=== PATIENT | female | born 1940 | race Caucasian/White ===

== ENCOUNTER 2019-02-14 09:47 | Inpatient (IN) | payer MEDICARE, BC ==
[~2019-02-14] VITALS: Ht 152.4 cm; Wt 65.2 kg
[~2019-02-14 09:47] MED LIST: ASPI-611 PO; ASPI81TA44 PO; ATOR10TA PO; ATOR10TA70 PO; ATOR10TA87 PO; BIMA2.5D EACHEYE; BIMA2.5D OP; CALCIUM CITRATE PO; CALCIUM WITH D; CLOP75TA33 PO; CLOP75TA35 PO; CYCL-394 PO; DILT120C51 PO; DONE-46 PO; DULO-31 PO; DULO60CA45 PO; EXEN2VIA SUBCUT; FOLI1TAB16 PO; FOLIC ACID PO; GABA-532 PO; IRON PO; IRON18TA PO; LEVO125T PO; LEVO88TA2 PO; LOSA1TAB41 PO; MAG DELAY64 MG PO; MAGN400C PO; METF-437 PO; MULT-1074 PO; MULT-1085 PO; NITR100C6 PO; OMEP20TA23 PO; PANT-47 PO; PIOG15TA8 PO; PIOG1TAB29 PO; SUCR1TAB34 PO; TRAM50TA2 PO; VITAMIN D3 PO
[2019-02-14 10:36] LABS: BASOPHILS % (AUTO) 0.2 % (0-1); EOSINOPHILS % (AUTO) 0.2 % (0-6); HEMATOCRIT 37.5 % (35.0-45.0); HEMOGLOBIN 12.6 g/dl (12.0-16.0); LYMPHOCYTES # (AUTO) 0.5 X10'3 (1.1-4.8); LYMPHOCYTES % (AUTO) 5.8 % (21-51); MEAN CORPUSCULAR HEMOGLOBIN 32.3 PG (27.0-31.0); MEAN CORPUSCULAR HGB CONC 33.5 g/dL (33.0-36.5); MEAN CORPUSCULAR VOLUME 96.6 FL (78-98); MEAN PLATELET VOLUME 9.1 FL (7.4-10.4); MONOCYTES # (AUTO) 0.7 X10'3 (0-0.9); MONOCYTES % (AUTO) 7.8 % (2-12); NEUTROPHILS # (AUTO) 7.5 X10'3 (1.8-7.7); PLATELET COUNT 216 X10'3 (140-440); RED BLOOD COUNT 3.88 X10'6 (4.20-5.60); RED CELL DISTRIBUTION WIDTH 13.6 % (11.5-14.5); WHITE BLOOD COUNT 8.7 X10'3 (4.5-11.0)
[2019-02-14 10:51] LABS: ALANINE AMINOTRANSFERASE 27 U/L (12-78); ALBUMIN 2.1 G/DL (3.4-5.0); ALBUMIN/GLOBULIN RATIO 0.5 (1.1-1.5); ALKALINE PHOSPHATASE 102 IU/L (46-116); ANION GAP 11 (8-16); ASPARTATE AMINO TRANSFERASE 19 U/L (10-37); BILIRUBIN,TOTAL 0.3 MG/DL (0.1-1.0); BLOOD UREA NITROGEN 15 MG/DL (7-18); BUN/CREATININE RATIO 18.5 (6.6-38.0); CALCIUM 8.2 MG/DL (8.5-10.1); CHLORIDE 106 MMOL/L (99-107); CREATININE 0.81 MG/DL (0.40-0.90); GLUCOSE 101 MG/DL (70-104); POTASSIUM 3.9 MMOL/L (3.5-5.1); SODIUM 144 MMOL/L (135-145); TOTAL CARBON DIOXIDE 26.8 MMOL/L (24-32); TOTAL PROTEIN 6.2 G/DL (6.4-8.2); eGFR 69 ML/MIN
[2019-02-14 10:58] LABS: MAGNESIUM 1.5 MG/DL (1.5-2.4)
[2019-02-14] MEDS ORDERED: DILT120C52 PO (12:55)
[2019-02-14] MEDS ORDERED: FURO-150 PO (12:57)
[2019-02-14] MEDS ORDERED: ENOX40SY7 SUBCUT (12:58)
[2019-02-14] MEDS ORDERED: LEVO125T8 PO (13:01)
[2019-02-14] MEDS ORDERED: PRED10TA23 PO (13:01)
[2019-02-14] MEDS ORDERED: PANT-47 PO (13:01)
--- NOTE | 2019-02-14 13:01 | NUR ---
Patient repositioned and turned to right side at this time for patient comfort. No signs of distress noted, all safety measures in place, family at bedside.
[2019-02-14] MEDS ORDERED: LATA2.5D2 EACHEYE (13:02)
[2019-02-14] MEDS ORDERED: ACET-75 PO (13:15)
[2019-02-14] MEDS ORDERED: CYCL10TA26 PO (13:15)
[2019-02-14] MEDS ORDERED: LACT1CAP65 PO (13:15)
[2019-02-14] MEDS ORDERED: BISA10SU11 RC (13:15)
[2019-02-14] MEDS ORDERED: SUCR1TAB PO (13:15)
[2019-02-14] MEDS ORDERED: acetaminophen 325mg tablet PO PRN (13:15)
[2019-02-14] MEDS ORDERED: NYST1000 PO (13:15)
[2019-02-14] MEDS ORDERED: mag hydrox/Alum hydrox/simeth 30ml oral suspension PO PRN (13:15)
[2019-02-14] MEDS ORDERED: POTA-84 PO (13:15)
[2019-02-14] MEDS ORDERED: magnesium hydroxide 30ml (MOM) UD suspension PO PRN (13:15)
[2019-02-14] MEDS ORDERED: GABA-532 PO (13:15)
[2019-02-14] MEDS ORDERED: ONDA4TAB11 PO (13:15)
[2019-02-14] MEDS ORDERED: HYDR-4353 PO (13:15)
[2019-02-14] MEDS ORDERED: INSU100V11 SQ (13:15)
[2019-02-14] MEDS ORDERED: ALBU2.5V13 NEB (13:15)
[2019-02-14] MEDS ORDERED: SENN-162 PO (13:15)
[2019-02-14 14:30] VITALS: BP 181/72
[2019-02-14 15:00] VITALS: BP 163/76
[2019-02-14] MEDS ORDERED: non-formulary drug (Acetaminophen 1 TABLET) PO PRN (15:10)
[2019-02-14] MEDS ORDERED: bisacodyl 10mg suppository rectal RC PRN (15:10)
[2019-02-14] MEDS ORDERED: sennosides 8.6mg tablet PO PRN (15:10)
[2019-02-14] MEDS ORDERED: insulin Lispro (HumaLOG) vial - multi-dose SQ PRN (15:10)
[2019-02-14] MEDS ORDERED: cyclobenzaprine 10mg tablet PO PRN (15:10)
[2019-02-14] MEDS ORDERED: non-formulary drug (Ondansetron HCl 1 TAB) PO PRN (15:10)
[2019-02-14 16:37] LABS: HEMOGLOBIN A1C 7.7 % (4.5-6.2)
[2019-02-14 16:44] LABS: CLARITY,URINE SLIGHTLY CLOUDY (Clear); COLOR,URINE YELLOW (Yellow); GLUCOSE, URINE NEGATIVE (Neg); KETONES,URINE NEGATIVE (Neg); LEUKOCYTE ESTERASE ,URINE NEGATIVE (Neg); NITRITES, URINE NEGATIVE (Neg); OCCULT BLOOD,URINE SMALL (Neg); PROTEIN,URINE 100 mg/dl (Neg)
[2019-02-14 16:46] LABS: UA COLLECTION TYPE CLN CATCH MIDSTREAM
[2019-02-14 16:50] LABS: BACTERIA,URINE 2+ /HPF (Neg); MUCUS STRANDS MANY /LPF (Neg); SQUAMOUS EPITHELIAL CELL,UR MANY /LPF (FEW); WBC,URINE 0-4 /HPF (0-4)
[2019-02-14 16:51] LABS: AMORPHOUS URATES 1+; CAL OXALATE CRYSTALS 4+ /HPF (NEGATIVE)
[2019-02-14 16:52] LABS: YEAST MANY /HPF (NEGATIVE)
[2019-02-14] MEDS: sucralfate 1 gm tablet PO SCH ×2 (17:00→20:42)
[2019-02-14] MEDS: nystatin 500,000 unit/5ML UD oral suspension PO SCH ×2 (17:41→20:46)
[2019-02-14 18:00] VITALS: BP 177/82
--- NOTE | 2019-02-14 18:00 | NUR ---
Patient in room MED 312. I have received report from MERVIN LEIVA and had the opportunity to ask questions and assume patient care.
--- NOTE | 2019-02-14 18:12 | NUR ---
Problems reprioritized. Patient report given, questions answered & plan of care reviewed with CALI Cedeno.
[2019-02-14] MEDS: potassium Cl 20 mEq SR tablet PO SCH (20:00)
[2019-02-14] MEDS: heparin, porcine 5000 units/ml vial SQ SCH (20:42)
[2019-02-14] MEDS: furosemide 40mg/4ml inj IV SCH (20:42)
[2019-02-14] MEDS: lactobacillus rhamnosus 10,000 MMU CELLS/CAPSULE PO SCH (20:43)
[2019-02-14] MEDS: atorvastatin 10mg tablet PO SCH (20:43)
[2019-02-14] MEDS: gabapentin 300mg capsule PO SCH (20:43)
[2019-02-14] MEDS: latanoprost 0.005% 2.5ml ophthalmic drops EACHEYE SCH (20:46)
[2019-02-14] MEDS: HYDROcodone/acetaminophen 10/325mg tab PO PRN (20:46)
--- NOTE | 2019-02-14 21:29 | NUR ---
CALLED DR NEFF REGARDING PTS HISTORY OF DIABETES AND HER BS OF [phone], HE DEFERRED IT TO DAYTIME HOSPITALIST.
[2019-02-14 22:00] VITALS: BP 149/75
[2019-02-15] VITALS (8 sets, daily range): BP systolic 114–155; BP diastolic 65–90
[2019-02-15] MEDS ORDERED: magnesium 4gm in 100ml NS 100 ML IV PRN (04:30)
[2019-02-15] MEDS ORDERED: magnesium Cl slow-release 64mg tablet PO PRN (04:30)
[2019-02-15] MEDS ORDERED: potassium CL 10mEq/100ml bag 100 ML IV PRN (04:30)
[2019-02-15] MEDS ORDERED: potassium Cl 20 mEq SR tablet PO PRN ×2 (04:30)
--- NOTE | 2019-02-15 04:33 | NUR ---
CALLED DR NEFF TO REPORT 10 BEAT RUN OF V-TACH. TAWANDA ORDERED PROTOCOL MAG REPLACEMENT.
[2019-02-15 05:24] LABS: BASOPHILS % (AUTO) 0.2 % (0-1); EOSINOPHILS # (AUTO) 0.1 X10'3 (0-0.9); HEMATOCRIT 37.9 % (35.0-45.0); HEMOGLOBIN 12.6 g/dl (12.0-16.0); LYMPHOCYTES # (AUTO) 0.4 X10'3 (1.1-4.8); LYMPHOCYTES % (AUTO) 5.9 % (21-51); MEAN CORPUSCULAR HGB CONC 33.4 g/dL (33.0-36.5); MEAN CORPUSCULAR VOLUME 95.9 FL (78-98); MEAN PLATELET VOLUME 9.3 FL (7.4-10.4); MONOCYTES # (AUTO) 0.6 X10'3 (0-0.9); MONOCYTES % (AUTO) 8.6 % (2-12); NEUTROPHILS # (AUTO) 6.3 X10'3 (1.8-7.7); NEUTROPHILS % (AUTO) 84.3 % (42-75); PLATELET COUNT 217 X10'3 (140-440); RED BLOOD COUNT 3.95 X10'6 (4.20-5.60); RED CELL DISTRIBUTION WIDTH 13.8 % (11.5-14.5); WHITE BLOOD COUNT 7.4 X10'3 (4.5-11.0)
[2019-02-15 05:37] LABS: ALBUMIN 2.1 G/DL (3.4-5.0); ANION GAP 7 (8-16); BLOOD UREA NITROGEN 13 MG/DL (7-18); BUN/CREATININE RATIO 15.9 (6.6-38.0); CALCIUM 7.8 MG/DL (8.5-10.1); CHLORIDE 101 MMOL/L (99-107); CREATININE 0.82 MG/DL (0.40-0.90); GLUCOSE 163 MG/DL (70-104); MAGNESIUM 1.3 MG/DL (1.5-2.4); POTASSIUM 3.3 MMOL/L (3.5-5.1); SODIUM 140 MMOL/L (135-145); TOTAL CARBON DIOXIDE 31.6 MMOL/L (24-32); eGFR 68 ML/MIN
--- NOTE | 2019-02-15 06:00 | NUR ---
Problems reprioritized. Patient report given, questions answered & plan of care reviewed with Angela LEIVA.
[2019-02-15] MEDS: sucralfate 1 gm tablet PO SCH (07:00)
--- NOTE | 2019-02-15 07:04 | NUR ---
Patient in room MED 312. I have received report from Pao LEIVA and had the opportunity to ask questions and assume patient care.
[2019-02-15] MEDS ORDERED: pantoprazole 40mg Tablet.DR PO SCH (08:00)
[2019-02-15] MEDS ORDERED: levoTHYROXINE 125mcg tablet PO SCH (08:00)
[2019-02-15] MEDS: nystatin 500,000 unit/5ML UD oral suspension PO SCH ×4 (08:00→21:15)
[2019-02-15] MEDS: gabapentin 300mg capsule PO SCH ×3 (08:10→21:00)
[2019-02-15] MEDS: duloxetine 30mg CAPSULE.DR PO SCH (08:10)
[2019-02-15] MEDS: potassium Cl 20 mEq SR tablet PO SCH ×2 (08:11→21:19)
[2019-02-15] MEDS: prednisone 10mg tablet PO SCH (08:12)
[2019-02-15] MEDS: diltiazem CD 120mg capsule (once-daily) PO SCH (08:13)
[2019-02-15] MEDS: lactobacillus rhamnosus 10,000 MMU CELLS/CAPSULE PO SCH ×2 (08:13→20:00)
[2019-02-15] MEDS: furosemide 40mg/4ml inj IV SCH ×2 (08:14→21:02)
[2019-02-15] MEDS: heparin, porcine 5000 units/ml vial SQ SCH ×2 (08:18→21:08)
[2019-02-15] MEDS ORDERED: acetaminophen 325mg/10.15ml oral unit dose solution PO PRN (09:14)
[2019-02-15] MEDS: sucralfate 1gm/10ml UD suspension PO SCH ×2 (12:00→21:14)
--- NOTE | 2019-02-15 13:13 | NUR ---
PAGER ID: [phone] MESSAGE: 312: SUMAN - HR SINUS TACH 160 -180S. ORDERS? TY NURSE KENDY
--- NOTE | 2019-02-15 13:19 | NUR ---
INFORMED ESCOBAR OF HR ST 160-180S. NEW ORDER: CALL IR STAT FOR THORACENTESIS AND GIVE X1 500mL NS BOLUS. WILL CONTINUE TO MONITOR.
--- NOTE | 2019-02-15 14:06 | NUR ---
PAGER ID: [phone] MESSAGE: 312: SUMAN FRANCO 700mL off left lung. HR much better post bolus and thora 100s :D Nurse Chelsea ext [phone]
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
--- NOTE | 2019-02-15 18:00 | NUR ---
Patient in room MED 312. I have received report from Angela LEIVA and had the opportunity to ask questions and assume patient care.
[2019-02-15] MEDS: ondansetron/PF 4mg/2ml inj IV PRN (20:18)
[2019-02-15] MEDS: atorvastatin 10mg tablet PO SCH (21:00)
[2019-02-15] MEDS: latanoprost 0.005% 2.5ml ophthalmic drops EACHEYE SCH (21:22)
[2019-02-16 02:00] VITALS: BP 144/66
[2019-02-16 05:31] LABS: BASOPHILS % (AUTO) 0.3 % (0-1); EOSINOPHILS % (AUTO) 0.5 % (0-6); HEMATOCRIT 38.4 % (35.0-45.0); LYMPHOCYTES # (AUTO) 0.4 X10'3 (1.1-4.8); LYMPHOCYTES % (AUTO) 5.7 % (21-51); MEAN CORPUSCULAR HEMOGLOBIN 32.7 PG (27.0-31.0); MEAN CORPUSCULAR HGB CONC 33.9 g/dL (33.0-36.5); MEAN CORPUSCULAR VOLUME 96.4 FL (78-98); MEAN PLATELET VOLUME 9.8 FL (7.4-10.4); MONOCYTES # (AUTO) 0.6 X10'3 (0-0.9); MONOCYTES % (AUTO) 9.8 % (2-12); NEUTROPHILS # (AUTO) 5.2 X10'3 (1.8-7.7); NEUTROPHILS % (AUTO) 83.7 % (42-75); PLATELET COUNT 227 X10'3 (140-440); RED BLOOD COUNT 3.99 X10'6 (4.20-5.60); RED CELL DISTRIBUTION WIDTH 13.7 % (11.5-14.5); WHITE BLOOD COUNT 6.2 X10'3 (4.5-11.0)
[2019-02-16 05:53] LABS: ALBUMIN 2.1 G/DL (3.4-5.0); ANION GAP 6 (8-16); BLOOD UREA NITROGEN 19 MG/DL (7-18); BUN/CREATININE RATIO 23.8 (6.6-38.0); CALCIUM 7.7 MG/DL (8.5-10.1); CHLORIDE 102 MMOL/L (99-107); GLUCOSE 174 MG/DL (70-104); MAGNESIUM 1.3 MG/DL (1.5-2.4); POTASSIUM 3.9 MMOL/L (3.5-5.1); SODIUM 140 MMOL/L (135-145); TOTAL CARBON DIOXIDE 31.9 MMOL/L (24-32); eGFR 70 ML/MIN
--- NOTE | 2019-02-16 06:00 | NUR ---
Problems reprioritized. Patient report given, questions answered & plan of care reviewed with KENDY LEIVA.
[2019-02-16 07:00] VITALS: BP 147/72
[2019-02-16] MEDS: sucralfate 1gm/10ml UD suspension PO SCH ×5 (07:00→22:53)
--- NOTE | 2019-02-16 07:11 | NUR ---
Patient in room MED 312. I have received report from Pao LEIVA and had the opportunity to ask questions and assume patient care.
[2019-02-16] MEDS: pantoprazole 40 MG vial IV SCH (07:50)
[2019-02-16] MEDS: heparin, porcine 5000 units/ml vial SQ SCH ×2 (07:51→22:52)
[2019-02-16] MEDS: furosemide 40mg/4ml inj IV SCH ×2 (07:51→22:44)
[2019-02-16] MEDS: potassium Cl 20 mEq SR tablet PO SCH ×2 (08:00→23:12)
[2019-02-16] MEDS: prednisone 10mg tablet PO SCH (08:00)
[2019-02-16] MEDS: gabapentin 300mg capsule PO SCH ×3 (08:02→21:00)
[2019-02-16] MEDS: diltiazem CD 120mg capsule (once-daily) PO SCH (08:02)
[2019-02-16] MEDS: duloxetine 30mg CAPSULE.DR PO SCH (08:02)
[2019-02-16] MEDS: lactobacillus rhamnosus 10,000 MMU CELLS/CAPSULE PO SCH ×2 (08:05→20:00)
[2019-02-16] MEDS: nystatin 500,000 unit/5ML UD oral suspension PO SCH ×4 (08:24→22:55)
[2019-02-16] MEDS: levoTHYROXINE sod inj. 100mcg/5 ml vial IV SCH (08:47)
--- NOTE | 2019-02-16 09:30 | NUR ---
Patient continues to refuse her K Dur which she spit out today. The pt states it "rodriguez". made aware when he rounded this morning.
[2019-02-16 11:00] VITALS: BP 159/72
[2019-02-16 15:00] VITALS: BP 116/53
[2019-02-16 18:00] VITALS: BP 113/39
--- NOTE | 2019-02-16 18:00 | NUR ---
Problems reprioritized. Patient report given, questions answered & plan of care reviewed with Pao LEIVA.
--- NOTE | 2019-02-16 18:00 | NUR ---
Patient in room MED 312. I have received report from KENDY LEIVA and had the opportunity to ask questions and assume patient care.
[2019-02-16] MEDS ORDERED: glucagon, human recombinant 1mg kit SUBCUT PRN (19:40)
[2019-02-16] MEDS ORDERED: dextrose 50%-water 50ml dispensing syringe IV PRN ×2 (19:40)
[2019-02-16] MEDS ORDERED: MESSAGE TO PHARMACY PO ONE (19:40)
[2019-02-16] MEDS ORDERED: dextrose ORAL solution 15 GM/59 ML bottle PO PRN ×2 (19:40)
--- NOTE | 2019-02-16 19:47 | NUR ---
Called Bernt and notified him pt does not take sliding scale insulin at home and requested if we could put her on the hyper/hypoglycemic protocol and he agreed.
[2019-02-16] MEDS: insulin Lispro (HumaLOG) vial - multi-dose SQ SCH (19:51)
[2019-02-16] MEDS: insulin glargine (Lantus) pen - multi-dose SQ SCH (21:00)
[2019-02-16] MEDS: atorvastatin 10mg tablet PO SCH (21:00)
[2019-02-16 22:00] VITALS: BP 125/53
[2019-02-16] MEDS: latanoprost 0.005% 2.5ml ophthalmic drops EACHEYE SCH (22:56)
--- NOTE | 2019-02-16 23:30 | NUR ---
CALLED TAWANDA ABOUT PT ASPIRATING ON PILL AND HE ORDERED CHEST XRAY, RT TREATEMENT AND EVAL, ABG, NPO NOW, AND SPEECH AND SWALLOW EVAL TO BE DONE.
[2019-02-17] VITALS (7 sets, daily range): BP systolic 124–160; BP diastolic 61–68
[2019-02-17 00:06] LABS: ABG BASE EXCESS 7.6 mmol/L (-2.0-3.0); ABG OXYGEN SATURATION 86.8 % (95-98); ABG PCO2 (T) 47.7 mmHg (35.0-45.0); ABG PH (T) 7.455 (7.350-7.450); ABG PO2 (T) 48.7 mmHg (83-108); ALLEN'S TEST Positive; FCOHb 0.2 % (0.5-1.5); FLOW 6 L/min; FMetHb 0.3 % (0.3-1.12); FO2Hb 86.4 % (94-100); PATIENT TEMPERATURE 36.3; TOTAL HEMOGLOBIN 14.3 G/dl (12.0-16.0)
[2019-02-17] MEDS: ipratropium/albuterol 3ml nebule NEB PRN (00:54)
[2019-02-17 05:45] LABS: BASOPHILS % (AUTO) 0.2 % (0-1); EOSINOPHILS % (AUTO) 0.1 % (0-6); HEMATOCRIT 38.3 % (35.0-45.0); LYMPHOCYTES # (AUTO) 0.3 X10'3 (1.1-4.8); LYMPHOCYTES % (AUTO) 4.8 % (21-51); MEAN CORPUSCULAR HEMOGLOBIN 32.9 PG (27.0-31.0); MEAN CORPUSCULAR VOLUME 96.7 FL (78-98); MEAN PLATELET VOLUME 9.4 FL (7.4-10.4); MONOCYTES # (AUTO) 0.6 X10'3 (0-0.9); MONOCYTES % (AUTO) 8.5 % (2-12); NEUTROPHILS % (AUTO) 86.4 % (42-75); PLATELET COUNT 239 X10'3 (140-440); RED BLOOD COUNT 3.96 X10'6 (4.20-5.60); RED CELL DISTRIBUTION WIDTH 13.4 % (11.5-14.5); WHITE BLOOD COUNT 6.9 X10'3 (4.5-11.0)
[2019-02-17 06:22] LABS: ANION GAP 7 (8-16); BLOOD UREA NITROGEN 22 MG/DL (7-18); BUN/CREATININE RATIO 25.6 (6.6-38.0); CALCIUM 7.9 MG/DL (8.5-10.1); CHLORIDE 101 MMOL/L (99-107); CREATININE 0.86 MG/DL (0.40-0.90); GLUCOSE 194 MG/DL (70-104); POTASSIUM 4.1 MMOL/L (3.5-5.1); SODIUM 138 MMOL/L (135-145); TOTAL CARBON DIOXIDE 30.1 MMOL/L (24-32); eGFR 64 ML/MIN
[2019-02-17 06:23] LABS: ALBUMIN 2.2 G/DL (3.4-5.0); MAGNESIUM 1.3 MG/DL (1.5-2.4)
[2019-02-17] MEDS: sucralfate 1gm/10ml UD suspension PO SCH ×4 (07:00→21:00)
--- NOTE | 2019-02-17 07:01 | NUR ---
Patient in room MED 312. I have received report from CALI slater and had the opportunity to ask questions and assume patient care.
[2019-02-17] MEDS: potassium Cl 20 mEq SR tablet PO SCH ×2 (08:00→20:00)
[2019-02-17] MEDS: lactobacillus rhamnosus 10,000 MMU CELLS/CAPSULE PO SCH ×2 (08:00→20:00)
[2019-02-17] MEDS: gabapentin 300mg capsule PO SCH ×3 (08:00→21:00)
[2019-02-17] MEDS: nystatin 500,000 unit/5ML UD oral suspension PO SCH ×4 (08:00→21:00)
[2019-02-17] MEDS: prednisone 10mg tablet PO SCH (08:00)
[2019-02-17] MEDS: diltiazem CD 120mg capsule (once-daily) PO SCH (08:00)
[2019-02-17] MEDS: duloxetine 30mg CAPSULE.DR PO SCH (08:00)
[2019-02-17] MEDS: furosemide 40mg/4ml inj IV SCH ×2 (08:28→20:03)
[2019-02-17] MEDS: pantoprazole 40 MG vial IV SCH (08:28)
[2019-02-17] MEDS: levoTHYROXINE sod inj. 100mcg/5 ml vial IV SCH (08:28)
[2019-02-17] MEDS: heparin, porcine 5000 units/ml vial SQ SCH ×2 (08:29→20:03)
--- NOTE | 2019-02-17 18:15 | NUR ---
Patient in room MED 312. I have received report from CALI Martinez and had the opportunity to ask questions and assume patient care.
--- NOTE | 2019-02-17 18:36 | NUR ---
Patient in room MED 312. I have received report from CALI Wade and had the opportunity to ask questions and assume patient care.
[2019-02-17] MEDS: normal saline 1000ml 1,000 ML IV SCH (20:03)
[2019-02-17] MEDS: atorvastatin 10mg tablet PO SCH (21:00)
[2019-02-17] MEDS: insulin glargine (Lantus) pen - multi-dose SQ SCH (21:00)
[2019-02-17] MEDS: latanoprost 0.005% 2.5ml ophthalmic drops EACHEYE SCH (21:30)
[2019-02-18 02:00] VITALS: BP 163/74
[2019-02-18 03:28] LABS: ALBUMIN 2.1 G/DL (3.4-5.0); ANION GAP 7 (8-16); BASOPHILS % (AUTO) 0.3 % (0-1); BLOOD UREA NITROGEN 22 MG/DL (7-18); BUN/CREATININE RATIO 27.5 (6.6-38.0); CALCIUM 7.9 MG/DL (8.5-10.1); CHLORIDE 99 MMOL/L (99-107); EOSINOPHILS % (AUTO) 0.1 % (0-6); GLUCOSE 177 MG/DL (70-104); HEMATOCRIT 40.5 % (35.0-45.0); HEMOGLOBIN 13.8 g/dl (12.0-16.0); LYMPHOCYTES # (AUTO) 0.3 X10'3 (1.1-4.8); LYMPHOCYTES % (AUTO) 4.3 % (21-51); MAGNESIUM 2.7 MG/DL (1.5-2.4); MEAN CORPUSCULAR HEMOGLOBIN 32.4 PG (27.0-31.0); MEAN CORPUSCULAR VOLUME 95.1 FL (78-98); MEAN PLATELET VOLUME 9.1 FL (7.4-10.4); MONOCYTES # (AUTO) 0.6 X10'3 (0-0.9); MONOCYTES % (AUTO) 7.9 % (2-12); NEUTROPHILS # (AUTO) 6.5 X10'3 (1.8-7.7); NEUTROPHILS % (AUTO) 87.4 % (42-75); PLATELET COUNT 281 X10'3 (140-440); RED BLOOD COUNT 4.26 X10'6 (4.20-5.60); RED CELL DISTRIBUTION WIDTH 13.6 % (11.5-14.5); SODIUM 140 MMOL/L (135-145); TOTAL CARBON DIOXIDE 34.3 MMOL/L (24-32); WHITE BLOOD COUNT 7.4 X10'3 (4.5-11.0); eGFR 70 ML/MIN
--- NOTE | 2019-02-18 03:40 | NUR ---
* NOTIFIED* PAGER ID: [phone] MESSAGE: ACCE 312 Amina Chaudhary, critical K+ 3.0. Will start replacement per protocol. Sheri Hernandez RN ext [phone]
[2019-02-18] MEDS ORDERED: potassium Cl 20 mEq SR tablet PO PRN ×2 (05:35)
[2019-02-18] MEDS ORDERED: magnesium 4gm in 100ml NS 100 ML IV PRN (05:35)
[2019-02-18] MEDS ORDERED: magnesium 2GM in 50ml NS 50 ML IV PRN (05:35)
[2019-02-18] MEDS: potassium CL 10mEq/100ml bag 100 ML IV PRN ×4 (05:54→20:55)
[2019-02-18 06:00] VITALS: BP 169/83
--- NOTE | 2019-02-18 06:24 | NUR ---
Problems reprioritized. Patient report given, questions answered & plan of care reviewed with ACLI Martinez.
--- NOTE | 2019-02-18 06:34 | NUR ---
Patient in room MED 312. I have received report from CALI Waed and had the opportunity to ask questions and assume patient care.
[2019-02-18] MEDS: nystatin 500,000 unit/5ML UD oral suspension PO SCH ×4 (08:00→20:40)
[2019-02-18] MEDS: duloxetine 30mg CAPSULE.DR PO SCH (08:00)
[2019-02-18] MEDS: lactobacillus rhamnosus 10,000 MMU CELLS/CAPSULE PO SCH ×2 (08:00→20:36)
[2019-02-18] MEDS: potassium Cl 20 mEq SR tablet PO SCH ×2 (08:00→20:00)
[2019-02-18] MEDS: furosemide 40mg/4ml inj IV SCH ×2 (08:00→13:25)
[2019-02-18] MEDS: levoTHYROXINE sod inj. 100mcg/5 ml vial IV SCH (08:00)
[2019-02-18] MEDS: gabapentin 300mg capsule PO SCH ×3 (08:00→20:38)
[2019-02-18] MEDS: ondansetron/PF 4mg/2ml inj IV PRN (08:08)
[2019-02-18] MEDS: pantoprazole 40 MG vial IV SCH (08:08)
[2019-02-18] MEDS: sucralfate 1gm/10ml UD suspension PO SCH ×4 (09:34→20:40)
[2019-02-18] MEDS: diltiazem CD 120mg capsule (once-daily) PO SCH (11:24)
[2019-02-18] MEDS: heparin, porcine 5000 units/ml vial SQ SCH ×2 (11:25→20:44)
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
[2019-02-18] MEDS: prednisone 10mg tablet PO SCH (13:25)
[2019-02-18] MEDS: HYDROcodone/acetaminophen 10/325mg tab PO PRN (14:11)
[2019-02-18] MEDS ORDERED: morphine 2 MG/ML inj. syringe IV PRN ×2 (15:25→15:30)
[2019-02-18] MEDS ORDERED: POTASSIUM CL IV ONE ×4 (15:55→16:03)
[2019-02-18] MEDS ORDERED: LIDOCAINE 1% IV ONE ×4 (15:55→16:03)
[2019-02-18] MEDS ORDERED: [UNRECOGNIZED DRUG - OTHER] IV ONE (15:59)
[2019-02-18] MEDS ORDERED: [UNRECOGNIZED DRUG - OTHER] IV ONE (16:03)
--- NOTE | 2019-02-18 17:59 | NUR ---
attempted IV restart x3,unsuccessful,picc line RN in iv started by BlanquitaRN x1 attempt to PATRICIA
[2019-02-18 18:00] VITALS: BP 109/87
--- NOTE | 2019-02-18 18:25 | NUR ---
Patient in room MED 312. I have received report from CALI Martinez and had the opportunity to ask questions and assume patient care.
--- NOTE | 2019-02-18 18:41 | NUR ---
Problems reprioritized. Patient report given, questions answered & plan of care reviewed with CALI Wade.
[2019-02-18] MEDS: atorvastatin 10mg tablet PO SCH (20:38)
[2019-02-18] MEDS: latanoprost 0.005% 2.5ml ophthalmic drops EACHEYE SCH (20:43)
[2019-02-18] MEDS: normal saline 1000ml 1,000 ML IV SCH ×2 (20:45→21:40)
[2019-02-18] MEDS: insulin Lispro (HumaLOG) vial - multi-dose SQ SCH (21:22)
[2019-02-18] MEDS: insulin glargine (Lantus) pen - multi-dose SQ SCH (21:24)
[2019-02-18 22:00] VITALS: BP 150/60
[2019-02-19] VITALS (7 sets, daily range): BP systolic 119–165; BP diastolic 56–84
[2019-02-19] MEDS: potassium CL 10mEq/100ml bag 100 ML IV PRN ×2 (01:55→04:52)
[2019-02-19 05:54] LABS: BASOPHILS % (AUTO) 0.1 % (0-1); EOSINOPHILS % (AUTO) 0 % (0-6); HEMATOCRIT 38.6 % (35.0-45.0); HEMOGLOBIN 13.2 g/dl (12.0-16.0); LYMPHOCYTES # (AUTO) 0.4 X10'3 (1.1-4.8); MEAN CORPUSCULAR HEMOGLOBIN 32.6 PG (27.0-31.0); MEAN CORPUSCULAR HGB CONC 34.2 g/dL (33.0-36.5); MEAN CORPUSCULAR VOLUME 95.4 FL (78-98); MEAN PLATELET VOLUME 9.1 FL (7.4-10.4); MONOCYTES # (AUTO) 0.6 X10'3 (0-0.9); MONOCYTES % (AUTO) 7.1 % (2-12); NEUTROPHILS % (AUTO) 88.8 % (42-75); PLATELET COUNT 290 X10'3 (140-440); RED BLOOD COUNT 4.05 X10'6 (4.20-5.60); RED CELL DISTRIBUTION WIDTH 13.1 % (11.5-14.5)
[2019-02-19 05:57] LABS: ALBUMIN 2.1 G/DL (3.4-5.0); ANION GAP 6 (8-16); BLOOD UREA NITROGEN 28 MG/DL (7-18); BUN/CREATININE RATIO 37.8 (6.6-38.0); CALCIUM 8.2 MG/DL (8.5-10.1); CHLORIDE 101 MMOL/L (99-107); CREATININE 0.74 MG/DL (0.40-0.90); GLUCOSE 182 MG/DL (70-104); MAGNESIUM 1.9 MG/DL (1.5-2.4); POTASSIUM 4.2 MMOL/L (3.5-5.1); SODIUM 139 MMOL/L (135-145); TOTAL CARBON DIOXIDE 32.5 MMOL/L (24-32); eGFR 76 ML/MIN
--- NOTE | 2019-02-19 06:37 | NUR ---
Problems reprioritized. Patient report given, questions answered & plan of care reviewed with CALI Rothman.
[2019-02-19 06:51] LABS: TOTAL CELLS COUNTED 100
[2019-02-19 06:52] LABS: PLATELET ESTIMATE NORMAL
[2019-02-19] MEDS: levoTHYROXINE sod inj. 100mcg/5 ml vial IV SCH (08:00)
[2019-02-19] MEDS: potassium Cl 20 mEq SR tablet PO SCH ×2 (08:00→21:52)
[2019-02-19] MEDS: gabapentin 300mg capsule PO SCH ×3 (08:05→21:48)
[2019-02-19] MEDS: sucralfate 1gm/10ml UD suspension PO SCH ×4 (08:05→21:46)
[2019-02-19] MEDS: nystatin 500,000 unit/5ML UD oral suspension PO SCH ×4 (08:05→21:46)
[2019-02-19] MEDS: prednisone 10mg tablet PO SCH (08:06)
[2019-02-19] MEDS: lactobacillus rhamnosus 10,000 MMU CELLS/CAPSULE PO SCH ×2 (08:06→21:55)
[2019-02-19] MEDS: duloxetine 30mg CAPSULE.DR PO SCH (08:06)
[2019-02-19] MEDS: diltiazem CD 120mg capsule (once-daily) PO SCH (08:06)
[2019-02-19] MEDS: heparin, porcine 5000 units/ml vial SQ SCH ×2 (08:07→21:44)
[2019-02-19] MEDS: furosemide 40mg/4ml inj IV SCH ×2 (08:07→21:33)
[2019-02-19] MEDS: pantoprazole 40 MG vial IV SCH (08:08)
[2019-02-19] MEDS: insulin Lispro (HumaLOG) vial - multi-dose SQ SCH ×4 (08:17→21:19)
[2019-02-19] MEDS: normal saline 1000ml 1,000 ML IV SCH (10:05)
--- NOTE | 2019-02-19 18:00 | NUR ---
Patient in room MED 312. I have received report from Lorna LEIAV and had the opportunity to ask questions and assume patient care.
[2019-02-19] MEDS: ipratropium/albuterol 3ml nebule NEB PRN (20:43)
--- NOTE | 2019-02-19 21:12 | NUR ---
RT eval and tx order cancelled, prn tx's still active as this is what the pt takes at home.
[2019-02-19] MEDS: insulin glargine (Lantus) pen - multi-dose SQ SCH (21:32)
[2019-02-19] MEDS: latanoprost 0.005% 2.5ml ophthalmic drops EACHEYE SCH (21:48)
[2019-02-19] MEDS: atorvastatin 10mg tablet PO SCH (21:50)
[2019-02-20 02:00] VITALS: BP 158/70
[2019-02-20 06:00] VITALS: BP 159/64
--- NOTE | 2019-02-20 06:00 | NUR ---
Problems reprioritized. Patient report given, questions answered & plan of care reviewed with Cleo LEIVA.
--- NOTE | 2019-02-20 06:00 | NUR ---
Patient in room MED 312. I have received report from CALI Cedeno and had the opportunity to ask questions and assume patient care.
[2019-02-20] MEDS: sucralfate 1gm/10ml UD suspension PO SCH ×4 (07:06→21:59)
[2019-02-20] MEDS: insulin Lispro (HumaLOG) vial - multi-dose SQ SCH ×3 (08:30→18:37)
[2019-02-20] MEDS: pantoprazole 40 MG vial IV SCH (08:40)
[2019-02-20] MEDS: furosemide 40mg/4ml inj IV SCH (08:40)
[2019-02-20] MEDS: heparin, porcine 5000 units/ml vial SQ SCH ×2 (08:41→22:05)
[2019-02-20] MEDS: lactobacillus rhamnosus 10,000 MMU CELLS/CAPSULE PO SCH ×2 (08:41→22:03)
[2019-02-20] MEDS: potassium Cl 20 mEq SR tablet PO SCH ×2 (08:41→22:03)
[2019-02-20] MEDS: nystatin 500,000 unit/5ML UD oral suspension PO SCH ×4 (08:41→21:59)
[2019-02-20] MEDS: duloxetine 30mg CAPSULE.DR PO SCH (08:42)
[2019-02-20] MEDS: diltiazem CD 120mg capsule (once-daily) PO SCH (08:42)
[2019-02-20] MEDS: prednisone 10mg tablet PO SCH (08:42)
[2019-02-20] MEDS: gabapentin 300mg capsule PO SCH ×3 (08:42→21:59)
[2019-02-20] MEDS: levoTHYROXINE sod inj. 100mcg/5 ml vial IV SCH (09:08)
[2019-02-20 11:00] VITALS: BP 128/58
--- NOTE | 2019-02-20 12:18 | NUR ---
reassessment: Pt now AOx2 advanced to mechanical soft grind all/thin liquid diet per SP. Pt confused and will only take meds w/ sherbet per RN; receiving magic cup now changed to sherbet TIDWM. Dietary notified. LBM 02/18. At this time pt PO 0-25% avg 6 days w/ flaccid strength and qualifies for severe malnutrition; MD notified. Pt not appropriate for written/verbal malnutrition ed at this time. RD d/w RN regarding removal of diet restrictions given poor PO hx per MD approval. Prior RD visit pt declines ONS. Will continue to monitor. Rec: 1. advance to regular/mechanical soft grind all/thin liquids per SP/MD 2. sherbet TIDWM 3. encourage PO 4. routine bowel care 5. weekly wts Addendum: 02/20/19 at [address] Amended: Links added.
[2019-02-20] MEDS: ipratropium/albuterol 3ml nebule NEB PRN (13:11)
[2019-02-20 15:00] VITALS: BP 137/45
--- NOTE | 2019-02-20 18:00 | NUR ---
Problems reprioritized. Patient report given, questions answered & plan of care reviewed with CAIL Otero.
--- NOTE | 2019-02-20 18:35 | NUR ---
Patient in room MED 312. I have received report from Cleo LEIVA and had the opportunity to ask questions and assume patient care. bedside report completed. no distress noted. fall precaution implemented.
[2019-02-20 19:30] VITALS: BP 140/63
[2019-02-20] MEDS: atorvastatin 10mg tablet PO SCH (21:59)
[2019-02-20] MEDS: latanoprost 0.005% 2.5ml ophthalmic drops EACHEYE SCH (22:00)
[2019-02-20] MEDS: insulin glargine (Lantus) pen - multi-dose SQ SCH (22:14)
[2019-02-20 22:30] VITALS: BP 165/69
[2019-02-21 02:00] VITALS: BP 162/73
[2019-02-21 03:07] LABS: BASOPHILS % (AUTO) 0 % (0-1); EOSINOPHILS % (AUTO) 0 % (0-6); HEMATOCRIT 39.8 % (35.0-45.0); HEMOGLOBIN 13.5 g/dl (12.0-16.0); LYMPHOCYTES # (AUTO) 0.7 X10'3 (1.1-4.8); LYMPHOCYTES % (AUTO) 5.1 % (21-51); MEAN CORPUSCULAR VOLUME 94.2 FL (78-98); MEAN PLATELET VOLUME 8.7 FL (7.4-10.4); MONOCYTES % (AUTO) 7.8 % (2-12); NEUTROPHILS # (AUTO) 11.2 X10'3 (1.8-7.7); NEUTROPHILS % (AUTO) 87.1 % (42-75); PLATELET COUNT 337 X10'3 (140-440); RED BLOOD COUNT 4.22 X10'6 (4.20-5.60); RED CELL DISTRIBUTION WIDTH 13.5 % (11.5-14.5); WHITE BLOOD COUNT 12.8 X10'3 (4.5-11.0)
[2019-02-21 03:12] LABS: ALBUMIN 2.1 G/DL (3.4-5.0); ANION GAP 6 (8-16); BLOOD UREA NITROGEN 34 MG/DL (7-18); BUN/CREATININE RATIO 41.5 (6.6-38.0); CALCIUM 8.2 MG/DL (8.5-10.1); CHLORIDE 101 MMOL/L (99-107); CREATININE 0.82 MG/DL (0.40-0.90); GLUCOSE 119 MG/DL (70-104); POTASSIUM 4.8 MMOL/L (3.5-5.1); SODIUM 140 MMOL/L (135-145); TOTAL CARBON DIOXIDE 33.2 MMOL/L (24-32); eGFR 68 ML/MIN
[2019-02-21 03:51] LABS: PLATELET ESTIMATE NORMAL; TOTAL CELLS COUNTED 100
[2019-02-21 06:00] VITALS: BP 195/80
--- NOTE | 2019-02-21 06:02 | NUR ---
Patient in room MED 312. I have received report from CALI Otero and had the opportunity to ask questions and assume patient care.
--- NOTE | 2019-02-21 06:37 | NUR ---
Problems reprioritized. Patient report given, questions answered & plan of care reviewed with Zuleima LEIVA.
[2019-02-21] MEDS: sucralfate 1gm/10ml UD suspension PO SCH ×4 (07:14→21:34)
[2019-02-21] MEDS: nystatin 500,000 unit/5ML UD oral suspension PO SCH ×4 (07:55→22:08)
[2019-02-21] MEDS: diltiazem CD 120mg capsule (once-daily) PO SCH (07:55)
[2019-02-21] MEDS: gabapentin 300mg capsule PO SCH ×3 (07:56→21:33)
[2019-02-21] MEDS: furosemide 40mg tablet PO SCH ×2 (07:56→21:32)
[2019-02-21] MEDS: prednisone 10mg tablet PO SCH (07:56)
[2019-02-21] MEDS: lactobacillus rhamnosus 10,000 MMU CELLS/CAPSULE PO SCH ×2 (07:57→21:33)
[2019-02-21] MEDS: duloxetine 30mg CAPSULE.DR PO SCH (07:57)
[2019-02-21] MEDS: pantoprazole 40 MG vial IV SCH (07:58)
[2019-02-21] MEDS: levoTHYROXINE sod inj. 100mcg/5 ml vial IV SCH (07:58)
[2019-02-21] MEDS: potassium Cl 20 mEq SR tablet PO SCH ×2 (08:00→21:33)
[2019-02-21] MEDS: heparin, porcine 5000 units/ml vial SQ SCH ×2 (08:06→21:34)
[2019-02-21] MEDS: insulin Lispro (HumaLOG) vial - multi-dose SQ SCH ×4 (08:46→21:51)
[2019-02-21 11:00] VITALS: BP 141/66
--- NOTE | 2019-02-21 14:55 | NUR ---
Patient brought to floor via WC by nursing staff. Patient is stable, no s/s of distress. Vitals at patients baseline. All questions and concerns addressed. Addendum: 02/21/19 at 1523 by Zuleima Stockton RN Entered on wrong patient
[2019-02-21 15:00] VITALS: BP 142/79
--- NOTE | 2019-02-21 17:55 | NUR ---
Problems reprioritized. Patient report given, questions answered & plan of care reviewed with CALI Rodríguez.
[2019-02-21 18:00] VITALS: BP 150/81
--- NOTE | 2019-02-21 18:22 | NUR ---
Orienteer documentation: I have reviewed and agree with interventions, assessments performed and documented by Nahid Dewey RN. Orienteer Medication Administration: For this medication-pass time frame, medication were reviewed, dispensed, administered and documented per hospital policy by Joey Dewey RN.
[2019-02-21] MEDS: ipratropium/albuterol 3ml nebule NEB PRN (19:07)
--- NOTE | 2019-02-21 21:28 | NUR ---
Patient in room MED 312. I have received report from Elly LEIVA and had the opportunity to ask questions and assume patient care.
[2019-02-21] MEDS: atorvastatin 10mg tablet PO SCH (21:32)
[2019-02-21] MEDS: latanoprost 0.005% 2.5ml ophthalmic drops EACHEYE SCH (21:35)
[2019-02-21] MEDS: insulin glargine (Lantus) pen - multi-dose SQ SCH (21:48)
[2019-02-21 22:00] VITALS: BP 157/69
[2019-02-22 02:00] VITALS: BP 155/68
[2019-02-22 06:00] VITALS: BP 170/79
--- NOTE | 2019-02-22 06:31 | NUR ---
Orientee documentation: I have reviewed and agree with interventions, assessments performed and documented by Lucy LEIVA.
--- NOTE | 2019-02-22 06:31 | NUR ---
Problems reprioritized. Patient report given, questions answered & plan of care reviewed with Alma LEIVA.
--- NOTE | 2019-02-22 06:32 | NUR ---
Problems reprioritized. Patient report given, questions answered & plan of care reviewed with Lesvia LEIVA.
--- NOTE | 2019-02-22 06:36 | NUR ---
Patient in room MED 312. I have received report from CALI Kamara and had the opportunity to ask questions and assume patient care.
[2019-02-22] MEDS: lactobacillus rhamnosus 10,000 MMU CELLS/CAPSULE PO SCH ×2 (08:19→20:00)
[2019-02-22] MEDS: gabapentin 300mg capsule PO SCH ×3 (08:20→22:07)
[2019-02-22] MEDS: prednisone 10mg tablet PO SCH (08:20)
[2019-02-22] MEDS: duloxetine 30mg CAPSULE.DR PO SCH (08:20)
[2019-02-22] MEDS: potassium Cl 20 mEq SR tablet PO SCH ×2 (08:20→20:00)
[2019-02-22] MEDS: furosemide 40mg tablet PO SCH ×2 (08:21→20:01)
[2019-02-22] MEDS: diltiazem CD 120mg capsule (once-daily) PO SCH (08:21)
[2019-02-22] MEDS: sucralfate 1gm/10ml UD suspension PO SCH ×4 (08:22→22:07)
[2019-02-22] MEDS: heparin, porcine 5000 units/ml vial SQ SCH ×2 (08:25→20:01)
[2019-02-22] MEDS: pantoprazole 40 MG vial IV SCH (08:25)
[2019-02-22] MEDS: levoTHYROXINE sod inj. 100mcg/5 ml vial IV SCH (08:26)
[2019-02-22 08:33] LABS: BASOPHILS % (AUTO) 0.2 % (0-1); EOSINOPHILS % (AUTO) 0 % (0-6); HEMATOCRIT 41.8 % (35.0-45.0); LYMPHOCYTES # (AUTO) 0.6 X10'3 (1.1-4.8); MEAN CORPUSCULAR HEMOGLOBIN 31.8 PG (27.0-31.0); MEAN CORPUSCULAR HGB CONC 33.5 g/dL (33.0-36.5); MEAN PLATELET VOLUME 9.1 FL (7.4-10.4); MONOCYTES % (AUTO) 6.6 % (2-12); NEUTROPHILS % (AUTO) 89.2 % (42-75); PLATELET COUNT 321 X10'3 (140-440); RED CELL DISTRIBUTION WIDTH 13.5 % (11.5-14.5); WHITE BLOOD COUNT 14.6 X10'3 (4.5-11.0)
[2019-02-22 08:37] LABS: ALBUMIN 2.1 G/DL (3.4-5.0); BLOOD UREA NITROGEN 34 MG/DL (7-18); BUN/CREATININE RATIO 41.5 (6.6-38.0); CALCIUM 8.4 MG/DL (8.5-10.1); CHLORIDE 98 MMOL/L (99-107); CREATININE 0.82 MG/DL (0.40-0.90); GLUCOSE 248 MG/DL (70-104); POTASSIUM 4.1 MMOL/L (3.5-5.1); TOTAL CARBON DIOXIDE 31.2 MMOL/L (24-32); eGFR 68 ML/MIN
[2019-02-22 08:39] LABS: ANION GAP 7 (8-16); SODIUM 136 MMOL/L (135-145)
[2019-02-22] MEDS: insulin Lispro (HumaLOG) vial - multi-dose SQ SCH ×3 (08:58→17:47)
[2019-02-22] MEDS: nystatin 500,000 unit/5ML UD oral suspension PO SCH ×4 (09:07→22:07)
[2019-02-22 09:34] LABS: PLATELET ESTIMATE NORMAL; TOTAL CELLS COUNTED 100; TOXIC GRANULATION 1+
[2019-02-22 11:00] VITALS: BP 161/78
[2019-02-22 15:00] VITALS: BP 121/49
--- NOTE | 2019-02-22 17:51 | NUR ---
pt. blood glucose level before dinner was 476. pt. stated that she drank a milkshake about 1.5 hours before RN checked her blood sugar. this would put her at a level 6 and giving 44 units of insulin for correction. per nursing judgement RN was uncomfortable giving her that much insulin d/t the most she has been given being 14 units. 20 units of insulin was given and blood sugar will be rechecked on NOC shift. made MD aware.
--- NOTE | 2019-02-22 17:59 | NUR ---
PAGER ID: [phone] MESSAGE: rm 312. pt. Amina Chaudhary. pt. glucose was 476. we are taking care of it. CALI Lakhani [phone]
[2019-02-22 18:00] VITALS: BP 136/59
--- NOTE | 2019-02-22 18:10 | NUR ---
Patient in room MED 312. I have received report from Alma LEIVA and had the opportunity to ask questions and assume patient care.
--- NOTE | 2019-02-22 18:26 | NUR ---
Problems reprioritized. Patient report given, questions answered & plan of care reviewed with CALI Ayala .
--- NOTE | 2019-02-22 19:09 | NUR ---
Dr. Langston notified of pt current BS of 414. pt had BS of 476 before dinner and stated she had a milkshake. day shift reported pt was given 20 units of insulin instead of 44 calculated correctional dose per nursing judgment. MD is aware and suggested to re-check in 4 hours.
[2019-02-22] MEDS: HYDROcodone/acetaminophen 10/325mg tab PO PRN (20:01)
[2019-02-22] MEDS: latanoprost 0.005% 2.5ml ophthalmic drops EACHEYE SCH (20:02)
[2019-02-22] MEDS: ondansetron/PF 4mg/2ml inj IV PRN (20:34)
[2019-02-22] MEDS: insulin glargine (Lantus) pen - multi-dose SQ SCH (21:00)
[2019-02-22 22:00] VITALS: BP 148/65
[2019-02-22] MEDS: atorvastatin 10mg tablet PO SCH (22:07)
[2019-02-23 02:00] VITALS: BP 153/69
[2019-02-23] MEDS: HYDROcodone/acetaminophen 10/325mg tab PO PRN ×3 (03:05→17:21)
[2019-02-23 06:00] VITALS: BP 165/65
--- NOTE | 2019-02-23 06:00 | NUR ---
Patient in room MED 312. I have received report from Asad LEIVA and had the opportunity to ask questions and assume patient care.
--- NOTE | 2019-02-23 06:29 | NUR ---
Problems reprioritized. Patient report given, questions answered & plan of care reviewed with Angela LEIVA.
--- NOTE | 2019-02-23 06:32 | NUR ---
Problems reprioritized. Patient report given, questions answered & plan of care reviewed with Angela Dye .
--- NOTE | 2019-02-23 06:32 | NUR ---
Orientee Medication Administration: For this medication-pass time frame medication were reviewed, dispensed, administered and documented per hospital policy by Lucy Dye .
--- NOTE | 2019-02-23 06:32 | NUR ---
Orientee documentation: I have reviewed and agree with interventions, assessments performed and documented by Lucy Dye .
[2019-02-23] MEDS: sucralfate 1gm/10ml UD suspension PO SCH ×4 (07:00→21:54)
[2019-02-23] MEDS: potassium Cl 20 mEq SR tablet PO SCH ×2 (08:00→20:45)
[2019-02-23] MEDS: nystatin 500,000 unit/5ML UD oral suspension PO SCH ×4 (08:46→21:53)
[2019-02-23] MEDS: diltiazem CD 120mg capsule (once-daily) PO SCH (08:47)
[2019-02-23] MEDS: duloxetine 30mg CAPSULE.DR PO SCH (08:47)
[2019-02-23] MEDS: furosemide 40mg tablet PO SCH ×2 (08:47→20:45)
[2019-02-23] MEDS: levoTHYROXINE sod inj. 100mcg/5 ml vial IV SCH (08:48)
[2019-02-23] MEDS: lactobacillus rhamnosus 10,000 MMU CELLS/CAPSULE PO SCH ×2 (08:48→20:45)
[2019-02-23] MEDS: gabapentin 300mg capsule PO SCH ×3 (08:48→20:45)
[2019-02-23] MEDS: pantoprazole 40 MG vial IV SCH (08:48)
[2019-02-23] MEDS: prednisone 10mg tablet PO SCH (08:49)
[2019-02-23] MEDS: heparin, porcine 5000 units/ml vial SQ SCH ×2 (08:50→20:58)
[2019-02-23] MEDS: insulin Lispro (HumaLOG) vial - multi-dose SQ SCH ×3 (09:24→19:50)
[2019-02-23 11:00] VITALS: BP 153/66
[2019-02-23] MEDS: ondansetron/PF 4mg/2ml inj IV PRN (12:20)
--- NOTE | 2019-02-23 13:31 | NUR ---
Reassessment: Pt now documented as A/O x 4. PO intake remains poor documented with 0-50% however refused dinner last night. Pending documentation of PO intake for today. Attempted visit with pt at bedside however pt sleeping and didn't wake with verbal cues. Pt has already been provided with alternative write in menu to provide additional food options and RD contact information. Per RN notes pt with a milkshake before dinner last night, possibly pt getting additional outside food. [facility] 02/22. Will continue to follow closely. Rec: 1. advance to regular/mechanical soft grind all/thin liquids per SP/MD given low PO intake 2. sherbet TIDWM 3. encourage PO 4. routine bowel care 5. weekly wts Addendum: 02/23/19 at [address] Amended: Links added.
[2019-02-23 15:00] VITALS: BP 117/56
--- NOTE | 2019-02-23 18:00 | NUR ---
Patient in room MED 312. I have received report from Angela LEIVA and had the opportunity to ask questions and assume patient care.
--- NOTE | 2019-02-23 18:33 | NUR ---
Problems reprioritized. Patient report given, questions answered & plan of care reviewed with Carolyne LEIVA.
[2019-02-23 20:15] VITALS: BP 118/60
[2019-02-23] MEDS: atorvastatin 10mg tablet PO SCH (20:45)
[2019-02-23] MEDS: latanoprost 0.005% 2.5ml ophthalmic drops EACHEYE SCH (21:54)
[2019-02-23 22:00] VITALS: BP 112/48
[2019-02-23] MEDS: insulin glargine (Lantus) pen - multi-dose SQ SCH (22:12)
[2019-02-24] VITALS (15 sets, daily range): BP systolic 73–157; BP diastolic 31–71
--- NOTE | 2019-02-24 06:00 | NUR ---
Problems reprioritized. Patient report given, questions answered & plan of care reviewed with Alisson and Zuleima RNs.
--- NOTE | 2019-02-24 06:05 | NUR ---
Patient in room MED 307. I have received report from CALI Barfield and had the opportunity to ask questions and assume patient care. Addendum: 02/24/19 at 1659 by Zuleima Stockton RN [place] [phone]
[2019-02-24] MEDS: sucralfate 1gm/10ml UD suspension PO SCH ×4 (07:24→20:58)
[2019-02-24] MEDS: pantoprazole 40 MG vial IV SCH (08:00)
[2019-02-24] MEDS: nystatin 500,000 unit/5ML UD oral suspension PO SCH ×4 (09:34→20:58)
[2019-02-24] MEDS: heparin, porcine 5000 units/ml vial SQ SCH ×2 (09:35→21:00)
[2019-02-24] MEDS: lactobacillus rhamnosus 10,000 MMU CELLS/CAPSULE PO SCH ×2 (09:43→20:59)
[2019-02-24] MEDS: levoTHYROXINE sod inj. 100mcg/5 ml vial IV SCH (09:43)
[2019-02-24] MEDS: diltiazem CD 120mg capsule (once-daily) PO SCH (09:44)
[2019-02-24] MEDS: prednisone 10mg tablet PO SCH (09:44)
[2019-02-24] MEDS: gabapentin 300mg capsule PO SCH ×3 (09:44→20:59)
[2019-02-24] MEDS: furosemide 40mg tablet PO SCH (09:44)
[2019-02-24] MEDS: potassium Cl 20 mEq SR tablet PO SCH ×2 (09:44→20:59)
[2019-02-24] MEDS: duloxetine 30mg CAPSULE.DR PO SCH (09:44)
[2019-02-24] MEDS: insulin Lispro (HumaLOG) vial - multi-dose SQ SCH ×2 (09:50→18:19)
--- NOTE | 2019-02-24 11:54 | NUR ---
Patient became tachycardic 130-[address] Vieira, obtained order for EKG. EKG inrterpretation is Afib with RVR. Current BP of 85-59. Contacted Dr. Vieira, obtained telephone order to start Amiodarone bolus and drip. Addendum: 02/24/19 at 1233 by Zuleima Stockton RN Had patient attempt to vagal x3 with no success.
[2019-02-24] MEDS ORDERED: amiodarone 150mg/dext, iso-os 100 ML IV ONE (12:00)
[2019-02-24] MEDS: amiodarone/D5 360MG/200ML BAG 200 ML IV SCH ×2 (12:16→18:22)
--- NOTE | 2019-02-24 12:27 | NUR ---
Dr. Vieira consulted with patient. Amiodarone bolus started at 1201, patient heart rate decreased from 180-199 to 140-170. Amiodarone drip started. Blood pressures have decreased; see vitals.
[2019-02-24] MEDS: metoprolol tartrate 1mg/ml inj IV PRN ×2 (12:39→13:07)
[2019-02-24] MEDS ORDERED: normal saline 1000ml 1,000 ML IV ONE (12:55)
[2019-02-24 13:04] LABS: BASOPHILS % (AUTO) 0.1 % (0-1); EOSINOPHILS % (AUTO) 0 % (0-6); HEMATOCRIT 40.7 % (35.0-45.0); HEMOGLOBIN 13.8 g/dl (12.0-16.0); LYMPHOCYTES # (AUTO) 0.7 X10'3 (1.1-4.8); MEAN CORPUSCULAR HEMOGLOBIN 32.2 PG (27.0-31.0); MEAN CORPUSCULAR HGB CONC 33.9 g/dL (33.0-36.5); MEAN PLATELET VOLUME 8.5 FL (7.4-10.4); MONOCYTES # (AUTO) 1.2 X10'3 (0-0.9); NEUTROPHILS # (AUTO) 15.2 X10'3 (1.8-7.7); NEUTROPHILS % (AUTO) 88.9 % (42-75); PLATELET COUNT 321 X10'3 (140-440); RED BLOOD COUNT 4.28 X10'6 (4.20-5.60); RED CELL DISTRIBUTION WIDTH 13.4 % (11.5-14.5); WHITE BLOOD COUNT 17.1 X10'3 (4.5-11.0)
[2019-02-24 13:19] LABS: ALANINE AMINOTRANSFERASE 39 U/L (12-78); ALBUMIN 2.2 G/DL (3.4-5.0); ALBUMIN/GLOBULIN RATIO 0.5 (1.1-1.5); ALKALINE PHOSPHATASE 135 IU/L (46-116); ANION GAP 8 (8-16); ASPARTATE AMINO TRANSFERASE 27 U/L (10-37); BILIRUBIN,TOTAL 0.3 MG/DL (0.1-1.0); BLOOD UREA NITROGEN 37 MG/DL (7-18); BUN/CREATININE RATIO 37.8 (6.6-38.0); CALCIUM 8.6 MG/DL (8.5-10.1); CHLORIDE 100 MMOL/L (99-107); CREATININE 0.98 MG/DL (0.40-0.90); GLUCOSE 145 MG/DL (70-104); POTASSIUM 4.7 MMOL/L (3.5-5.1); SODIUM 141 MMOL/L (135-145); TOTAL CARBON DIOXIDE 32.9 MMOL/L (24-32); TOTAL PROTEIN 6.3 G/DL (6.4-8.2); eGFR 55 ML/MIN
[2019-02-24 13:26] LABS: MAGNESIUM 1.6 MG/DL (1.5-2.4)
[2019-02-24] MEDS ORDERED: magnesium 2GM in 50ml NS 50 ML IV ONE (14:10)
--- NOTE | 2019-02-24 15:46 | NUR ---
PAGER ID: [phone] MESSAGE: SALVADOR: Patient Amina Chaudhary Rm# 312. Patient at 1527 converted back to normal sinus rhythm, no PVC's noted, heart rate 85 bpm. Thank you - CALI Tran
--- NOTE | 2019-02-24 16:58 | NUR ---
PAGER ID: [phone] MESSAGE: FYHazel: Patient Amina Chaudhary Rm# 312 Lactic Acid at 1345 was 2.7 and 1600 is 2.6
--- NOTE | 2019-02-24 17:38 | NUR ---
CALLED SUSI EWING, UPDATED ON NEW LABS AND HR CONVERTED TO SR IN THE 60s. NEW ORDER RECEIVED: 500mL NS BOLUS NOW.
--- NOTE | 2019-02-24 17:39 | NUR ---
Orientee documentation and med administration: I have reviewed and agree with all interventions, assessments performed and documented by Zuleima LEIVA.
[2019-02-24] MEDS ORDERED: normal saline 500ml IV soln 500 ML IV ONE (17:50)
--- NOTE | 2019-02-24 17:54 | NUR ---
Problems reprioritized. Patient report given, questions answered & plan of care reviewed with CALI Wade.
--- NOTE | 2019-02-24 18:15 | NUR ---
Patient in room MED 312. I have received report from CALI Dewey and had the opportunity to ask questions and assume patient care.
[2019-02-24] MEDS: atorvastatin 10mg tablet PO SCH (20:58)
[2019-02-24] MEDS: latanoprost 0.005% 2.5ml ophthalmic drops EACHEYE SCH (21:00)
[2019-02-24] MEDS: insulin glargine (Lantus) pen - multi-dose SQ SCH (21:07)
[2019-02-25] VITALS (8 sets, daily range): BP systolic 117–172; BP diastolic 48–75
[2019-02-25] MEDS: amiodarone/D5 360MG/200ML BAG 200 ML IV SCH ×2 (05:52→06:12)
--- NOTE | 2019-02-25 06:00 | NUR ---
Patient in room MED 312. I have received report from CALI Wade and had the opportunity to ask questions and assume patient care.
--- NOTE | 2019-02-25 06:16 | NUR ---
Problems reprioritized. Patient report given, questions answered & plan of care reviewed with CALI Marquez and CALI Dewey.
[2019-02-25] MEDS: sucralfate 1gm/10ml UD suspension PO SCH ×4 (06:39→21:22)
--- NOTE | 2019-02-25 07:38 | NUR ---
PAGER ID: [phone] MESSAGE: Patient Amina Chaudhary Rm# 139. Would you like us to stop the Amiodarone drip? Patient stable, normal sinus, rate 80's, BP increased. Maintained through night. Thank you - KING Tran RN #[phone]
[2019-02-25] MEDS: diltiazem CD 120mg capsule (once-daily) PO SCH (07:39)
[2019-02-25] MEDS: gabapentin 300mg capsule PO SCH ×3 (07:40→21:22)
[2019-02-25] MEDS: duloxetine 30mg CAPSULE.DR PO SCH (07:40)
[2019-02-25] MEDS: heparin, porcine 5000 units/ml vial SQ SCH ×2 (07:40→21:23)
[2019-02-25] MEDS: prednisone 10mg tablet PO SCH (07:40)
[2019-02-25] MEDS: potassium Cl 20 mEq SR tablet PO SCH ×2 (07:40→21:19)
[2019-02-25] MEDS: lactobacillus rhamnosus 10,000 MMU CELLS/CAPSULE PO SCH ×2 (07:40→21:22)
[2019-02-25] MEDS: pantoprazole 40 MG vial IV SCH (07:41)
[2019-02-25] MEDS: levoTHYROXINE sod inj. 100mcg/5 ml vial IV SCH (07:41)
[2019-02-25] MEDS: nystatin 500,000 unit/5ML UD oral suspension PO SCH ×4 (07:41→21:22)
[2019-02-25] MEDS: cefepime 1GM in D5W 50mL 50 ML IV SCH ×3 (08:02→23:59)
[2019-02-25 08:07] LABS: BASOPHILS % (AUTO) 0.1 % (0-1); EOSINOPHILS % (AUTO) 0.1 % (0-6); HEMATOCRIT 41.5 % (35.0-45.0); HEMOGLOBIN 13.8 g/dl (12.0-16.0); LYMPHOCYTES # (AUTO) 0.5 X10'3 (1.1-4.8); LYMPHOCYTES % (AUTO) 3.2 % (21-51); MEAN CORPUSCULAR HEMOGLOBIN 31.9 PG (27.0-31.0); MEAN CORPUSCULAR HGB CONC 33.2 g/dL (33.0-36.5); MEAN CORPUSCULAR VOLUME 96.1 FL (78-98); MEAN PLATELET VOLUME 8.8 FL (7.4-10.4); MONOCYTES # (AUTO) 1.2 X10'3 (0-0.9); MONOCYTES % (AUTO) 7.3 % (2-12); NEUTROPHILS # (AUTO) 14.6 X10'3 (1.8-7.7); NEUTROPHILS % (AUTO) 89.3 % (42-75); PLATELET COUNT 314 X10'3 (140-440); RED BLOOD COUNT 4.31 X10'6 (4.20-5.60); RED CELL DISTRIBUTION WIDTH 13.6 % (11.5-14.5); WHITE BLOOD COUNT 16.3 X10'3 (4.5-11.0)
[2019-02-25 08:17] LABS: ALBUMIN 2.1 G/DL (3.4-5.0); ANION GAP 9 (8-16); BLOOD UREA NITROGEN 30 MG/DL (7-18); BUN/CREATININE RATIO 41.1 (6.6-38.0); CALCIUM 8.4 MG/DL (8.5-10.1); CHLORIDE 101 MMOL/L (99-107); CREATININE 0.73 MG/DL (0.40-0.90); GLUCOSE 115 MG/DL (70-104); POTASSIUM 3.9 MMOL/L (3.5-5.1); SODIUM 138 MMOL/L (135-145); TOTAL CARBON DIOXIDE 28.3 MMOL/L (24-32); eGFR 78 ML/MIN
--- NOTE | 2019-02-25 08:40 | NUR ---
paged PICC nurse to help place extended IV for pt.
[2019-02-25] MEDS: insulin Lispro (HumaLOG) vial - multi-dose SQ SCH ×2 (09:01→13:25)
--- NOTE | 2019-02-25 09:17 | NUR ---
PAGER ID: [phone] MESSAGE: 312. pt. Amina Chaudhary. unable to get a extended IV in her. is it ok to do a midline? Lesvia [phone]
--- NOTE | 2019-02-25 09:50 | NUR ---
RN confirmed that Dr. Vieira requested a midline to be inserted.
--- NOTE | 2019-02-25 13:33 | NUR ---
DR. MILTON CALLED. NEW ORDERS RECEIVED: CBC/CMP DAILY X3 DAYS
--- NOTE | 2019-02-25 17:27 | NUR ---
Glucose 62, patient refused juice or glucose shot because it was meal time. Pt did not want to be rechecked. Addendum: 02/25/19 at 1746 by Zuleima Stockton RN Patient asymptomatic
--- NOTE | 2019-02-25 17:43 | NUR ---
I have reviewed and agree with all interventions, assessments performed and documented by CALI Dewey.
--- NOTE | 2019-02-25 17:58 | NUR ---
Problems reprioritized. Patient report given, questions answered & plan of care reviewed with CALI Wade.
--- NOTE | 2019-02-25 18:15 | NUR ---
Patient in room MED 312. I have received report from Zuleima RN and Alma RN and had the opportunity to ask questions and assume patient care.
[2019-02-25] MEDS: atorvastatin 10mg tablet PO SCH (21:22)
[2019-02-25] MEDS: latanoprost 0.005% 2.5ml ophthalmic drops EACHEYE SCH (21:23)
[2019-02-25] MEDS: insulin glargine (Lantus) pen - multi-dose SQ SCH (21:36)
[2019-02-26 02:00] VITALS: BP 163/67
[2019-02-26 04:33] LABS: BASOPHILS % (AUTO) 0.1 % (0-1); EOSINOPHILS % (AUTO) 0 % (0-6); HEMATOCRIT 37.9 % (35.0-45.0); HEMOGLOBIN 12.6 g/dl (12.0-16.0); LYMPHOCYTES # (AUTO) 0.5 X10'3 (1.1-4.8); LYMPHOCYTES % (AUTO) 3.2 % (21-51); MEAN CORPUSCULAR HEMOGLOBIN 31.8 PG (27.0-31.0); MEAN CORPUSCULAR HGB CONC 33.3 g/dL (33.0-36.5); MEAN CORPUSCULAR VOLUME 95.4 FL (78-98); MEAN PLATELET VOLUME 8.7 FL (7.4-10.4); MONOCYTES # (AUTO) 1.2 X10'3 (0-0.9); MONOCYTES % (AUTO) 7.3 % (2-12); NEUTROPHILS # (AUTO) 14.4 X10'3 (1.8-7.7); NEUTROPHILS % (AUTO) 89.4 % (42-75); PLATELET COUNT 290 X10'3 (140-440); RED BLOOD COUNT 3.98 X10'6 (4.20-5.60); RED CELL DISTRIBUTION WIDTH 13.5 % (11.5-14.5); WHITE BLOOD COUNT 16.1 X10'3 (4.5-11.0)
[2019-02-26 04:49] LABS: ALANINE AMINOTRANSFERASE 32 U/L (12-78); ALBUMIN 1.9 G/DL (3.4-5.0); ALBUMIN/GLOBULIN RATIO 0.5 (1.1-1.5); ALKALINE PHOSPHATASE 116 IU/L (46-116); ANION GAP 5 (8-16); ASPARTATE AMINO TRANSFERASE 23 U/L (10-37); BILIRUBIN,TOTAL 0.3 MG/DL (0.1-1.0); BLOOD UREA NITROGEN 26 MG/DL (7-18); BUN/CREATININE RATIO 25.7 (6.6-38.0); CALCIUM 8.4 MG/DL (8.5-10.1); CHLORIDE 105 MMOL/L (99-107); CREATININE 1.01 MG/DL (0.40-0.90); GLUCOSE 90 MG/DL (70-104); POTASSIUM 4.3 MMOL/L (3.5-5.1); SODIUM 142 MMOL/L (135-145); TOTAL PROTEIN 5.9 G/DL (6.4-8.2); eGFR 53 ML/MIN
[2019-02-26 06:00] VITALS: BP 183/78
--- NOTE | 2019-02-26 06:05 | NUR ---
Patient in room MED 312. I have received report from CALI Wade and had the opportunity to ask questions and assume patient care.
[2019-02-26 06:29] LABS: PLATELET ESTIMATE NORMAL; TOTAL CELLS COUNTED 100
--- NOTE | 2019-02-26 06:30 | NUR ---
Problems reprioritized. Patient report given, questions answered & plan of care reviewed with CALI Dewey and CALI Marquez.
[2019-02-26] MEDS: sucralfate 1gm/10ml UD suspension PO SCH ×4 (07:32→21:07)
--- NOTE | 2019-02-26 07:45 | NUR ---
Encouraged patient to participate with PT and nursing due to prior refusals. Educated patient of risks and complications; pt verbalized understanding.
[2019-02-26] MEDS: levoTHYROXINE sod inj. 100mcg/5 ml vial IV SCH (08:43)
[2019-02-26] MEDS: cefepime 1GM in D5W 50mL 50 ML IV SCH ×2 (08:43→15:50)
[2019-02-26] MEDS: pantoprazole 40 MG vial IV SCH (08:43)
[2019-02-26] MEDS: lactobacillus rhamnosus 10,000 MMU CELLS/CAPSULE PO SCH ×2 (08:44→21:09)
[2019-02-26] MEDS: gabapentin 300mg capsule PO SCH ×3 (08:44→21:11)
[2019-02-26] MEDS: potassium Cl 20 mEq SR tablet PO SCH ×2 (08:44→21:09)
[2019-02-26] MEDS: nystatin 500,000 unit/5ML UD oral suspension PO SCH ×4 (08:44→21:07)
[2019-02-26] MEDS: duloxetine 30mg CAPSULE.DR PO SCH (08:44)
[2019-02-26] MEDS: heparin, porcine 5000 units/ml vial SQ SCH ×2 (08:44→21:13)
[2019-02-26] MEDS: diltiazem CD 120mg capsule (once-daily) PO SCH (08:44)
[2019-02-26] MEDS: prednisone 10mg tablet PO SCH (08:45)
[2019-02-26] MEDS: insulin Lispro (HumaLOG) vial - multi-dose SQ SCH ×4 (09:06→22:09)
[2019-02-26] MEDS ORDERED: vancomycin 1500mg/300ml PREMIX 250 ML IV ONE (10:36)
[2019-02-26 11:00] VITALS: BP 180/60
[2019-02-26] MEDS ORDERED: vancomycin/NS 1 GM ADD-VANTAGE 250 ML IV SCH (11:00)
[2019-02-26] MEDS: HYDROcodone/acetaminophen 10/325mg tab PO PRN ×2 (11:19→21:10)
[2019-02-26] MEDS: ipratropium/albuterol 3ml nebule NEB PRN ×3 (11:24→19:54)
--- NOTE | 2019-02-26 14:54 | NUR ---
reassessment: Pt PO remains low 25% avg fluctuates to occasional 50% since admit not fully meeting needs. DX neuroendocrine carcinoma, pulmonary primary and pt would like to start chemo upon d/c per MD note but not candidate for chemo at this time per MD r/t low functional status. Pt receives sherbet TIDWM since uses to take meds and feels nice on esophagus. Per RN; pt endorses good appetite and mainly eats smaller more frequent meals at home. MAYNOR thomas.kwabena CHEEMA for advancement to regular/mechanical soft chopped diet given low PO hx and would benefit from magic cup/Elliot shakes for additional protein needs in addition to following SP recs. Pt is having more secretions today per MD note. Pt likely not PEG candidate given reported good appetite at home and too high acuity for care facility where she's already been accepted per RN. Regular shakes TIDWM added for additional kcals given low PO hx and 20-31g CHO depending on flavor still meeting CCHO guidelines. Will continue to monitor. Rec: 1. advance to regular/mechanical soft chop all/thin liquids per SP/MD given low PO intake 2. sherbet/shakes TIDWM 3. encourage PO 4. routine bowel care 5. weekly wts 6. IF regular diet consider magic cup/Elliot shakes TIDWM for additional proteins Addendum: 02/26/19 at [address] Amended: Links added.
[2019-02-26 15:00] VITALS: BP 155/70
--- NOTE | 2019-02-26 16:15 | NUR ---
PAGER ID: [phone] MESSAGE: Patient Amina Chaudhary Rm# 120 FYI: when performing pericare after bowel movement, patient had feces exiting vagina instead of anus. Thank you - ACCGeovanni Tran RN #[phone]
--- NOTE | 2019-02-26 17:10 | NUR ---
I have reviewed and agree with all interventions, assessments performed and documented by CALI Dewey.
[2019-02-26 18:00] VITALS: BP 150/48
--- NOTE | 2019-02-26 18:35 | NUR ---
Problems reprioritized. Patient report given, questions answered & plan of care reviewed with CALI Kamara.
--- NOTE | 2019-02-26 19:12 | NUR ---
Patient in room MED 312. I have received report from Alma Dye and had the opportunity to ask questions and assume patient care.
[2019-02-26] MEDS: atorvastatin 10mg tablet PO SCH (21:09)
[2019-02-26] MEDS: guaiFENesin ER 600mg tablet PO SCH (21:10)
[2019-02-26] MEDS: latanoprost 0.005% 2.5ml ophthalmic drops EACHEYE SCH (21:13)
[2019-02-26] MEDS: ondansetron/PF 4mg/2ml inj IV PRN (21:23)
[2019-02-26 22:00] VITALS: BP 117/61
[2019-02-26] MEDS: insulin glargine (Lantus) pen - multi-dose SQ SCH (22:08)
[2019-02-27] VITALS (11 sets, daily range): BP systolic 77–159; BP diastolic 42–77
[2019-02-27] MEDS: cefepime 1GM in D5W 50mL 50 ML IV SCH ×4 (00:06→23:24)
[2019-02-27 05:03] LABS: BASOPHILS % (AUTO) 0.2 % (0-1); EOSINOPHILS % (AUTO) 0.1 % (0-6); HEMATOCRIT 39.4 % (35.0-45.0); LYMPHOCYTES # (AUTO) 0.5 X10'3 (1.1-4.8); LYMPHOCYTES % (AUTO) 2.3 % (21-51); MEAN CORPUSCULAR HEMOGLOBIN 32.2 PG (27.0-31.0); MEAN CORPUSCULAR HGB CONC 33.1 g/dL (33.0-36.5); MEAN CORPUSCULAR VOLUME 97.4 FL (78-98); MEAN PLATELET VOLUME 9.2 FL (7.4-10.4); MONOCYTES # (AUTO) 1.2 X10'3 (0-0.9); MONOCYTES % (AUTO) 6.3 % (2-12); NEUTROPHILS # (AUTO) 17.9 X10'3 (1.8-7.7); NEUTROPHILS % (AUTO) 91.1 % (42-75); PLATELET COUNT 278 X10'3 (140-440); RED BLOOD COUNT 4.05 X10'6 (4.20-5.60); RED CELL DISTRIBUTION WIDTH 14.1 % (11.5-14.5); WHITE BLOOD COUNT 19.6 X10'3 (4.5-11.0)
[2019-02-27 05:19] LABS: ALANINE AMINOTRANSFERASE 35 U/L (12-78); ALBUMIN/GLOBULIN RATIO 0.5 (1.1-1.5); ALKALINE PHOSPHATASE 119 IU/L (46-116); ANION GAP 6 (8-16); ASPARTATE AMINO TRANSFERASE 23 U/L (10-37); BILIRUBIN,TOTAL 0.3 MG/DL (0.1-1.0); BLOOD UREA NITROGEN 27 MG/DL (7-18); BUN/CREATININE RATIO 30.7 (6.6-38.0); CALCIUM 8.8 MG/DL (8.5-10.1); CHLORIDE 105 MMOL/L (99-107); CREATININE 0.88 MG/DL (0.40-0.90); GLUCOSE 139 MG/DL (70-104); SODIUM 142 MMOL/L (135-145); TOTAL CARBON DIOXIDE 31.3 MMOL/L (24-32); TOTAL PROTEIN 6.1 G/DL (6.4-8.2); eGFR 62 ML/MIN
[2019-02-27 05:21] LABS: POTASSIUM 6.7 MMOL/L (3.5-5.1)
[2019-02-27] MEDS ORDERED: dextrose 50%-water 50ml dispensing syringe IV STA (05:27)
[2019-02-27] MEDS ORDERED: albuterol 2.5 MG/3 ML nebule CONTNEB STA (05:27)
[2019-02-27] MEDS ORDERED: sodium polystyrene sulfonate 15gm/60ml oral suspension PO STA (05:27)
[2019-02-27] MEDS ORDERED: insulin regular, human 10 units/0.1 ml syringe IV ONE (05:30)
[2019-02-27] MEDS ORDERED: calcium gluconate inj. 2 GM in normal saline 100ml IV soln 100 ML IV ONE (05:30)
--- NOTE | 2019-02-27 05:30 | NUR ---
Spoke with Dr. Kennedy. Pt's K+ came back at 6.7. Orders received and put into the chart.
--- NOTE | 2019-02-27 06:26 | NUR ---
Problems reprioritized. Patient report given, questions answered & plan of care reviewed with Lora LEIVA.
--- NOTE | 2019-02-27 06:30 | NUR ---
Patient in room MED 312. I have received report from CALI Kamara and had the opportunity to ask questions and assume patient care.
[2019-02-27] MEDS: sucralfate 1gm/10ml UD suspension PO SCH ×4 (07:29→21:10)
[2019-02-27] MEDS: nystatin 500,000 unit/5ML UD oral suspension PO SCH ×4 (09:42→21:10)
[2019-02-27] MEDS: heparin, porcine 5000 units/ml vial SQ SCH ×2 (09:42→21:15)
[2019-02-27] MEDS: pantoprazole 40 MG vial IV SCH (09:43)
[2019-02-27] MEDS: lactobacillus rhamnosus 10,000 MMU CELLS/CAPSULE PO SCH ×2 (09:44→21:10)
[2019-02-27] MEDS: gabapentin 300mg capsule PO SCH ×3 (09:44→21:10)
[2019-02-27] MEDS: guaiFENesin ER 600mg tablet PO SCH ×2 (09:44→21:10)
[2019-02-27] MEDS: prednisone 10mg tablet PO SCH (09:44)
[2019-02-27] MEDS: duloxetine 30mg CAPSULE.DR PO SCH (09:44)
[2019-02-27] MEDS: levoTHYROXINE sod inj. 100mcg/5 ml vial IV SCH (09:45)
[2019-02-27] MEDS: diltiazem CD 120mg capsule (once-daily) PO SCH (09:45)
[2019-02-27] MEDS: insulin Lispro (HumaLOG) vial - multi-dose SQ SCH ×3 (10:26→18:32)
[2019-02-27] MEDS ORDERED: morphine 2 MG/ML inj. syringe IV PRN (10:40)
[2019-02-27] MEDS ORDERED: vancomycin/NS 1 GM ADD-VANTAGE 250 ML IV SCH (11:00)
[2019-02-27] MEDS: vancomycin/NS 1 GM ADD-VANTAGE 250 ML IV SCH ×2 (11:31→21:16)
[2019-02-27] MEDS: morphine 2 MG/ML inj. syringe IV PRN ×2 (12:03→14:23)
--- NOTE | 2019-02-27 12:10 | NUR ---
pt. requesting breathing treatment. respiratory paged.
[2019-02-27 12:12] LABS: ANION GAP 11 (8-16); BLOOD UREA NITROGEN 25 MG/DL (7-18); BUN/CREATININE RATIO 25.3 (6.6-38.0); CALCIUM 8.9 MG/DL (8.5-10.1); CHLORIDE 105 MMOL/L (99-107); CREATININE 0.99 MG/DL (0.40-0.90); GLUCOSE 146 MG/DL (70-104); SODIUM 146 MMOL/L (135-145); TOTAL CARBON DIOXIDE 29.9 MMOL/L (24-32); eGFR 55 ML/MIN
[2019-02-27 12:13] LABS: POTASSIUM 3.6 MMOL/L (3.5-5.1)
[2019-02-27] MEDS: ipratropium/albuterol 3ml nebule NEB PRN ×2 (12:23→20:13)
--- NOTE | 2019-02-27 12:50 | NUR ---
PAGER ID: [phone] MESSAGE: rm 312. pt. Amina Chaudhary. pt. went into rapid AFIB at 1220. manual pulse check was 83. please advise. CALI Lakhani [phone]
[2019-02-27] MEDS ORDERED: digoxin 250mcg/ml 2ml ampule IV STA (13:01)
--- NOTE | 2019-02-27 13:41 | NUR ---
PAGER ID: [phone] MESSAGE: rm. 213. pt. Amina Chaudhary. digoxin was given and there has been no change in her heart rate. can we please get an Amio drip? thank you. CALI Lakhani [phone]
[2019-02-27] MEDS ORDERED: amiodarone 150mg/dext, iso-os 100 ML IV ONE (13:50)
[2019-02-27] MEDS: amiodarone/D5 360MG/200ML BAG 200 ML IV SCH ×4 (14:11→21:26)
--- NOTE | 2019-02-27 14:17 | NUR ---
PAGER ID: [phone] MESSAGE: 312-JEET WILL. FAMILY IS AT BEDSIDE. THEY ARE REQUESTING PATIENT TO BE A "DNR." CAN YOU PLEASE COME TO BEDSIDE? THANK YOU. ALINE- CHARGE NURSE. EXT [phone] (159 character message out of a maximum of 24)
[2019-02-27] MEDS ORDERED: diltiazem CD 180mg cap (once-daily) PO STA (15:39)
--- NOTE | 2019-02-27 18:37 | NUR ---
Patient in room MED 312. I have received report from Lesvia LEIVA and had the opportunity to ask questions and assume patient care. bedside report completed.
--- NOTE | 2019-02-27 19:29 | NUR ---
Problems reprioritized. Patient report given, questions answered & plan of care reviewed with CALI Otero.
[2019-02-27] MEDS: atorvastatin 10mg tablet PO SCH (21:10)
[2019-02-27] MEDS: latanoprost 0.005% 2.5ml ophthalmic drops EACHEYE SCH (21:16)
[2019-02-27] MEDS: insulin glargine (Lantus) pen - multi-dose SQ SCH (21:54)
[2019-02-28] VITALS (8 sets, daily range): BP systolic 121–165; BP diastolic 40–66
[2019-02-28 03:01] LABS: BASOPHILS % (AUTO) 0.1 % (0-1); EOSINOPHILS % (AUTO) 0 % (0-6); HEMATOCRIT 33.9 % (35.0-45.0); HEMOGLOBIN 11.4 g/dl (12.0-16.0); LYMPHOCYTES # (AUTO) 0.7 X10'3 (1.1-4.8); MEAN CORPUSCULAR HGB CONC 33.6 g/dL (33.0-36.5); MEAN PLATELET VOLUME 9.3 FL (7.4-10.4); MONOCYTES # (AUTO) 1.4 X10'3 (0-0.9); MONOCYTES % (AUTO) 5.9 % (2-12); NEUTROPHILS # (AUTO) 21.3 X10'3 (1.8-7.7); PLATELET COUNT 270 X10'3 (140-440); RED BLOOD COUNT 3.57 X10'6 (4.20-5.60); RED CELL DISTRIBUTION WIDTH 13.5 % (11.5-14.5); WHITE BLOOD COUNT 23.5 X10'3 (4.5-11.0)
[2019-02-28 03:07] LABS: ALANINE AMINOTRANSFERASE 35 U/L (12-78); ALBUMIN 1.9 G/DL (3.4-5.0); ALBUMIN/GLOBULIN RATIO 0.5 (1.1-1.5); ALKALINE PHOSPHATASE 125 IU/L (46-116); ANION GAP 10 (8-16); ASPARTATE AMINO TRANSFERASE 30 U/L (10-37); BILIRUBIN,TOTAL 0.3 MG/DL (0.1-1.0); BLOOD UREA NITROGEN 23 MG/DL (7-18); BUN/CREATININE RATIO 27.4 (6.6-38.0); CHLORIDE 104 MMOL/L (99-107); CREATININE 0.84 MG/DL (0.40-0.90); GLUCOSE 115 MG/DL (70-104); SODIUM 144 MMOL/L (135-145); TOTAL CARBON DIOXIDE 30.2 MMOL/L (24-32); TOTAL PROTEIN 5.6 G/DL (6.4-8.2); eGFR 66 ML/MIN
[2019-02-28 03:09] LABS: POTASSIUM 2.8 MMOL/L (3.5-5.1)
--- NOTE | 2019-02-28 03:14 | NUR ---
Dr. Hobson notified. PAGER ID: [phone] MESSAGE: Amina Chaudhary [facility] unit 312 critical lab value. K+ 2.8. Branden LEIVA ext [phone]
[2019-02-28] MEDS ORDERED: magnesium Cl slow-release 64mg tablet PO PRN (04:40)
[2019-02-28] MEDS ORDERED: potassium CL 10mEq/100ml bag 100 ML IV PRN (04:40)
[2019-02-28] MEDS ORDERED: potassium Cl 20 mEq SR tablet PO PRN (04:40)
[2019-02-28] MEDS ORDERED: magnesium 4gm in 100ml NS 100 ML IV PRN (04:40)
[2019-02-28] MEDS ORDERED: magnesium 2GM in 50ml NS 50 ML IV ONE (04:45)
--- NOTE | 2019-02-28 05:04 | NUR ---
Dr. shipley. follow up critical lab. K+2.8 1. start non cardiac k+ replacement, give 2 grams of magnesium IVPB x1 now. order placed. called MD back r/t Magnesium IV not compatible with amiodarone drip. pt has 1 midline, no PIV. new orders 1. hold 2 gram magnesium x1, recheck Magnesium lab after K+ is replaced.
[2019-02-28] MEDS: potassium Cl 20 mEq SR tablet PO PRN ×3 (05:14→18:29)
--- NOTE | 2019-02-28 06:15 | NUR ---
Patient in room MED 312. I have received report from Branden LEIVA and had the opportunity to ask questions and assume patient care.
--- NOTE | 2019-02-28 06:21 | NUR ---
Problems reprioritized. Patient report given, questions answered & plan of care reviewed with Autumn LEIVA. Bedside report completed.
[2019-02-28] MEDS: sucralfate 1gm/10ml UD suspension PO SCH ×4 (07:43→20:52)
[2019-02-28] MEDS: heparin, porcine 5000 units/ml vial SQ SCH ×2 (07:46→20:51)
[2019-02-28] MEDS: pantoprazole 40 MG vial IV SCH (07:48)
[2019-02-28] MEDS: lactobacillus rhamnosus 10,000 MMU CELLS/CAPSULE PO SCH ×2 (08:15→21:03)
[2019-02-28] MEDS: diltiazem CD 120mg capsule (once-daily) PO SCH (08:15)
[2019-02-28] MEDS: duloxetine 30mg CAPSULE.DR PO SCH (08:15)
[2019-02-28] MEDS: prednisone 10mg tablet PO SCH (08:15)
[2019-02-28] MEDS: guaiFENesin ER 600mg tablet PO SCH ×2 (08:15→21:03)
[2019-02-28] MEDS: gabapentin 300mg capsule PO SCH ×3 (08:15→21:03)
[2019-02-28] MEDS: nystatin 500,000 unit/5ML UD oral suspension PO SCH ×4 (08:16→20:52)
[2019-02-28] MEDS: levoTHYROXINE sod inj. 100mcg/5 ml vial IV SCH (08:16)
[2019-02-28] MEDS: cefepime 1GM in D5W 50mL 50 ML IV SCH ×3 (09:33→23:59)
[2019-02-28] MEDS: insulin Lispro (HumaLOG) vial - multi-dose SQ SCH ×4 (09:43→21:15)
[2019-02-28] MEDS: vancomycin/NS 1 GM ADD-VANTAGE 250 ML IV SCH ×2 (10:07→21:18)
[2019-02-28] MEDS: HYDROcodone/acetaminophen 10/325mg tab PO PRN (10:08)
[2019-02-28] MEDS: amiodarone 200mg tablet PO SCH ×3 (10:14→21:03)
[2019-02-28] MEDS: ipratropium/albuterol 3ml nebule NEB PRN ×2 (11:14→17:56)
--- NOTE | 2019-02-28 12:58 | NUR ---
Pt had blood sugar of 43. Two glucose shots administered. Blood sugar rechecked 15 minutes later: 114
[2019-02-28] MEDS: amiodarone/D5 360MG/200ML BAG 200 ML IV SCH (14:03)
--- NOTE | 2019-02-28 18:15 | NUR ---
received report from CALI Vinson
--- NOTE | 2019-02-28 18:20 | NUR ---
Problems reprioritized. Patient report given, questions answered & plan of care reviewed with Lucy LEIVA.
--- NOTE | 2019-02-28 18:20 | NUR ---
received patient report from Alisson LEIVA
--- NOTE | 2019-02-28 19:00 | NUR ---
pt stated a visitor brought her food, did not have any food from hospital tray
[2019-02-28] MEDS ORDERED: VANCOMYCIN LEVEL IV ONE (20:30)
[2019-02-28] MEDS: latanoprost 0.005% 2.5ml ophthalmic drops EACHEYE SCH (20:51)
--- NOTE | 2019-02-28 21:00 | NUR ---
PAGER ID: [phone] MESSAGE: pt 312 xray 02/24 - fluid in L lung. auscultated coarse crackles. pt had L thora on 02/15, 700 ml out. per report pt has treatable small cell carcinoma stage II but not candidate for chemo. pls review chart for possible intervention [id number]
[2019-02-28] MEDS: atorvastatin 10mg tablet PO SCH (21:03)
[2019-02-28] MEDS: insulin glargine (Lantus) pen - multi-dose SQ SCH (21:13)
[2019-02-28 21:37] LABS: VANCOMYCIN,TROUGH 30.5 UG/ML (6.0-14.0)
--- NOTE | 2019-02-28 21:42 | NUR ---
PAGER ID: [phone] MESSAGE: 312 Pt Jet FRANCO critical vanco trough 30.5. Pharmacy to dose. Thank you.
[2019-02-28 22:06] LABS: MAGNESIUM 1.6 MG/DL (1.5-2.4)
[2019-03-01 02:00] VITALS: BP 121/58
[2019-03-01 06:00] VITALS: BP 195/81
--- NOTE | 2019-03-01 06:00 | NUR ---
I have received report from Lucy Mcdermott RN and had the opportunity to ask questions and assume patient care.
--- NOTE | 2019-03-01 06:13 | NUR ---
PAGER ID: [phone] MESSAGE: PT 312 SBP running high, latest BP is 205/77. SALVADOR changed x-ray to single view bc pt cant stand. -Lucy LEIVA ext [phone]
--- NOTE | 2019-03-01 06:27 | NUR ---
gave report to CALI Knox
--- NOTE | 2019-03-01 06:27 | NUR ---
received report from CALI Vinson
[2019-03-01] MEDS: sucralfate 1gm/10ml UD suspension PO SCH ×4 (07:20→21:00)
[2019-03-01] MEDS: nystatin 500,000 unit/5ML UD oral suspension PO SCH ×4 (07:25→20:58)
[2019-03-01] MEDS: pantoprazole 40 MG vial IV SCH (07:25)
[2019-03-01] MEDS: lactobacillus rhamnosus 10,000 MMU CELLS/CAPSULE PO SCH ×2 (07:25→20:58)
[2019-03-01] MEDS: hydrALAZINE 20mg/ml inj. IV PRN ×2 (07:25→20:58)
[2019-03-01] MEDS: duloxetine 30mg CAPSULE.DR PO SCH (07:26)
[2019-03-01] MEDS: gabapentin 300mg capsule PO SCH ×3 (07:26→20:58)
[2019-03-01] MEDS: guaiFENesin ER 600mg tablet PO SCH ×2 (07:26→20:58)
[2019-03-01] MEDS: amiodarone 200mg tablet PO SCH ×3 (07:26→20:58)
[2019-03-01] MEDS: levoTHYROXINE sod inj. 100mcg/5 ml vial IV SCH (07:26)
[2019-03-01] MEDS: diltiazem CD 120mg capsule (once-daily) PO SCH (07:26)
[2019-03-01] MEDS: prednisone 10mg tablet PO SCH (07:26)
[2019-03-01] MEDS: cefepime 1GM in D5W 50mL 50 ML IV SCH ×2 (07:26→16:00)
[2019-03-01 09:16] LABS: BASOPHILS % (AUTO) 0.1 % (0-1); EOSINOPHILS % (AUTO) 0 % (0-6); HEMATOCRIT 36.9 % (35.0-45.0); HEMOGLOBIN 12.3 g/dl (12.0-16.0); LYMPHOCYTES # (AUTO) 0.5 X10'3 (1.1-4.8); LYMPHOCYTES % (AUTO) 2.4 % (21-51); MEAN CORPUSCULAR HEMOGLOBIN 32.1 PG (27.0-31.0); MEAN CORPUSCULAR HGB CONC 33.4 g/dL (33.0-36.5); MEAN CORPUSCULAR VOLUME 96.2 FL (78-98); MEAN PLATELET VOLUME 8.9 FL (7.4-10.4); MONOCYTES % (AUTO) 4.5 % (2-12); NEUTROPHILS # (AUTO) 21.5 X10'3 (1.8-7.7); PLATELET COUNT 280 X10'3 (140-440); RED BLOOD COUNT 3.83 X10'6 (4.20-5.60); RED CELL DISTRIBUTION WIDTH 13.7 % (11.5-14.5); WHITE BLOOD COUNT 23.1 X10'3 (4.5-11.0)
[2019-03-01 09:35] LABS: ALANINE AMINOTRANSFERASE 29 U/L (12-78); ALBUMIN/GLOBULIN RATIO 0.5 (1.1-1.5); ALKALINE PHOSPHATASE 131 IU/L (46-116); ANION GAP 8 (8-16); ASPARTATE AMINO TRANSFERASE 28 U/L (10-37); BILIRUBIN,TOTAL 0.4 MG/DL (0.1-1.0); BLOOD UREA NITROGEN 19 MG/DL (7-18); BUN/CREATININE RATIO 23.8 (6.6-38.0); CALCIUM 8.2 MG/DL (8.5-10.1); CHLORIDE 107 MMOL/L (99-107); GLUCOSE 141 MG/DL (70-104); MAGNESIUM 1.5 MG/DL (1.5-2.4); POTASSIUM 3.8 MMOL/L (3.5-5.1); SODIUM 144 MMOL/L (135-145); TOTAL CARBON DIOXIDE 28.8 MMOL/L (24-32); TOTAL PROTEIN 5.9 G/DL (6.4-8.2); eGFR 70 ML/MIN
[2019-03-01 09:53] LABS: TOTAL CELLS COUNTED 100
[2019-03-01 09:54] LABS: PLATELET ESTIMATE NORMAL; POLYCHROMASIA 1+; TOXIC GRANULATION 1+
--- NOTE | 2019-03-01 10:07 | NUR ---
PAGER ID: [phone] MESSAGE: 312-Jet. I gave the pt's prn iv hydralazine this morning but it did not bring her B/P down. Pt. is not on any oral B/P meds. Would you like to add anything? Abilio LEIVA
[2019-03-01] MEDS ORDERED: VANCOMYCIN LEVEL IV ONE ×2 (10:30→21:30)
[2019-03-01 11:00] VITALS: BP 181/89
[2019-03-01] MEDS ORDERED: diltiazem CD 180mg cap (once-daily) PO STA (11:02)
[2019-03-01] MEDS: heparin, porcine 5000 units/ml vial SQ SCH ×2 (11:34→21:08)
--- NOTE | 2019-03-01 14:51 | NUR ---
reassessment: Pt PO still poor 0-25% avg meals receiving shakes and sherbet TIDWM since easier on throat. MAYNOR d/w RN regarding advancement to regular diet per MD approval given above criteria. MAYNOR thomas.kwabena CHEEMA for approval. LBM 02/28. IF advanced to regular/mechanical soft grind meat as per SP recs would be able to provide more shake options to better soothe esophageal radiation rodriguez per pt report and to meet protein/kcal needs. Rec: 1. advance to regular/mechanical soft grind meat/thin liquids per SP/MD given low PO intake 2. sherbet/shakes TIDWM 3. encourage PO 4. routine bowel care 5. weekly wts 6. IF regular diet consider magic cup/Elliot shakes TIDWM for additional protein/kcals Addendum: 03/01/19 at [address] Amended: Links added.
[2019-03-01 15:00] VITALS: BP 171/73
[2019-03-01 18:00] VITALS: BP 163/66
--- NOTE | 2019-03-01 18:13 | NUR ---
Problems reprioritized. Patient report given, questions answered & plan of care reviewed with Lucy LEIVA.
--- NOTE | 2019-03-01 18:15 | NUR ---
received pt report from CALI shepherd
[2019-03-01] MEDS: ipratropium/albuterol 3ml nebule NEB PRN (19:48)
--- NOTE | 2019-03-01 20:07 | NUR ---
PAGER ID: [phone] MESSAGE: pt 8B has unilateral swelling R side larger, may we do a D-dimer to assess a potential clot, pt BP 162/97 w/ linda braun. -Lucy LEIVA ext [phone] Addendum: 03/01/19 at 2010 by Lucy Cardenas RN document error, wrong pt
[2019-03-01] MEDS: atorvastatin 10mg tablet PO SCH (20:58)
[2019-03-01] MEDS: latanoprost 0.005% 2.5ml ophthalmic drops EACHEYE SCH (21:08)
[2019-03-01] MEDS: insulin glargine (Lantus) pen - multi-dose SQ SCH (21:41)
[2019-03-01 22:00] VITALS: BP 107/52
[2019-03-01] MEDS: vancomycin/NS 1 GM ADD-VANTAGE 250 ML IV SCH (23:33)
[2019-03-02] MEDS: cefepime 1GM in D5W 50mL 50 ML IV SCH ×3 (01:57→16:17)
[2019-03-02 02:00] VITALS: BP 120/57
[2019-03-02 06:00] VITALS: BP 193/76
--- NOTE | 2019-03-02 06:15 | NUR ---
gave patient report to Michelle LEIVA
--- NOTE | 2019-03-02 06:30 | NUR ---
Patient in room MED 312. I have received report from myra willis and had the opportunity to ask questions and assume patient care.
[2019-03-02 06:42] LABS: BASOPHILS # (AUTO) 0.1 X10'3 (0-0.2); BASOPHILS % (AUTO) 0.7 % (0-1); EOSINOPHILS % (AUTO) 0 % (0-6); HEMATOCRIT 37.1 % (35.0-45.0); HEMOGLOBIN 12.3 g/dl (12.0-16.0); LYMPHOCYTES # (AUTO) 0.4 X10'3 (1.1-4.8); LYMPHOCYTES % (AUTO) 1.9 % (21-51); MEAN CORPUSCULAR HEMOGLOBIN 31.9 PG (27.0-31.0); MEAN CORPUSCULAR HGB CONC 33.1 g/dL (33.0-36.5); MEAN CORPUSCULAR VOLUME 96.5 FL (78-98); MEAN PLATELET VOLUME 9.3 FL (7.4-10.4); MONOCYTES % (AUTO) 4.9 % (2-12); NEUTROPHILS # (AUTO) 18.1 X10'3 (1.8-7.7); NEUTROPHILS % (AUTO) 92.5 % (42-75); PLATELET COUNT 261 X10'3 (140-440); RED BLOOD COUNT 3.84 X10'6 (4.20-5.60); RED CELL DISTRIBUTION WIDTH 13.5 % (11.5-14.5); WHITE BLOOD COUNT 19.6 X10'3 (4.5-11.0)
[2019-03-02 07:08] LABS: ALANINE AMINOTRANSFERASE 31 U/L (12-78); ALBUMIN 2.1 G/DL (3.4-5.0); ALBUMIN/GLOBULIN RATIO 0.5 (1.1-1.5); ALKALINE PHOSPHATASE 133 IU/L (46-116); ANION GAP 10 (8-16); ASPARTATE AMINO TRANSFERASE 34 U/L (10-37); BILIRUBIN,TOTAL 0.5 MG/DL (0.1-1.0); BLOOD UREA NITROGEN 21 MG/DL (7-18); BUN/CREATININE RATIO 27.6 (6.6-38.0); CALCIUM 8.4 MG/DL (8.5-10.1); CHLORIDE 107 MMOL/L (99-107); CREATININE 0.76 MG/DL (0.40-0.90); GLUCOSE 132 MG/DL (70-104); POTASSIUM 3.4 MMOL/L (3.5-5.1); SODIUM 147 MMOL/L (135-145); TOTAL CARBON DIOXIDE 30.2 MMOL/L (24-32); TOTAL PROTEIN 6.1 G/DL (6.4-8.2); eGFR 74 ML/MIN
[2019-03-02 07:48] LABS: TOTAL CELLS COUNTED 100
[2019-03-02 07:50] LABS: PLATELET ESTIMATE NORMAL; POLYCHROMASIA 1+; TOXIC GRANULATION 2+
[2019-03-02] MEDS: ipratropium/albuterol 3ml nebule NEB PRN ×3 (07:59→19:44)
[2019-03-02] MEDS: nystatin 500,000 unit/5ML UD oral suspension PO SCH ×4 (08:00→20:52)
[2019-03-02] MEDS: pantoprazole 40 MG vial IV SCH (08:12)
[2019-03-02] MEDS: heparin, porcine 5000 units/ml vial SQ SCH ×2 (08:13→20:53)
[2019-03-02] MEDS: sucralfate 1gm/10ml UD suspension PO SCH ×4 (08:13→20:53)
[2019-03-02] MEDS: gabapentin 300mg capsule PO SCH ×3 (08:14→20:52)
[2019-03-02] MEDS: guaiFENesin ER 600mg tablet PO SCH ×2 (08:14→20:52)
[2019-03-02] MEDS: amiodarone 200mg tablet PO SCH ×3 (08:14→20:52)
[2019-03-02] MEDS: prednisone 10mg tablet PO SCH (08:14)
[2019-03-02] MEDS: duloxetine 30mg CAPSULE.DR PO SCH (08:14)
[2019-03-02] MEDS: lactobacillus rhamnosus 10,000 MMU CELLS/CAPSULE PO SCH ×2 (08:14→20:52)
[2019-03-02] MEDS: diltiazem CD 120mg capsule (once-daily) PO SCH (08:15)
[2019-03-02] MEDS: levoTHYROXINE sod inj. 100mcg/5 ml vial IV SCH (09:30)
[2019-03-02 11:00] VITALS: BP 141/68
[2019-03-02] MEDS ORDERED: furosemide 20 MG/2 ML vial IV ONE (11:30)
[2019-03-02] MEDS: insulin Lispro (HumaLOG) vial - multi-dose SQ SCH ×2 (13:46→21:22)
[2019-03-02] MEDS: hydrALAZINE 20mg/ml inj. IV PRN (16:19)
[2019-03-02 18:00] VITALS: BP 87/54
--- NOTE | 2019-03-02 18:15 | NUR ---
received pt report from CALI Martinez
--- NOTE | 2019-03-02 18:30 | NUR ---
spoke with daytime RN about pt fluctuating blood glucose. 0700 BS was 151, 1200 BS was 200, 1700 BS was 61 & corrected to 165. pt dropped from a level 4 to level 3 due to BS of 61. pt had dinner tray and had 36 g of carbs. conferred with daytime RN-no nutritional dose of insulin was given. will continue to monitor.
--- NOTE | 2019-03-02 18:39 | NUR ---
Problems reprioritized. Patient report given, questions answered & plan of care reviewed with myra willis.
[2019-03-02] MEDS: atorvastatin 10mg tablet PO SCH (20:52)
[2019-03-02] MEDS: furosemide 20 MG/2 ML vial IV SCH (20:53)
[2019-03-02] MEDS: latanoprost 0.005% 2.5ml ophthalmic drops EACHEYE SCH (21:03)
[2019-03-02] MEDS: insulin glargine (Lantus) pen - multi-dose SQ SCH (21:16)
[2019-03-02 22:00] VITALS: BP 107/49
[2019-03-02] MEDS: vancomycin/NS 1 GM ADD-VANTAGE 250 ML IV SCH (22:44)
[2019-03-03] MEDS: cefepime 1GM in D5W 50mL 50 ML IV SCH ×3 (00:37→16:40)
[2019-03-03 02:00] VITALS: BP 116/62
[2019-03-03 03:10] LABS: BASOPHILS % (AUTO) 0.1 % (0-1); EOSINOPHILS % (AUTO) 0.1 % (0-6); HEMATOCRIT 34.5 % (35.0-45.0); HEMOGLOBIN 11.7 g/dl (12.0-16.0); LYMPHOCYTES # (AUTO) 0.5 X10'3 (1.1-4.8); LYMPHOCYTES % (AUTO) 2.7 % (21-51); MEAN CORPUSCULAR VOLUME 94.3 FL (78-98); MEAN PLATELET VOLUME 8.7 FL (7.4-10.4); MONOCYTES # (AUTO) 1.1 X10'3 (0-0.9); MONOCYTES % (AUTO) 5.7 % (2-12); NEUTROPHILS # (AUTO) 18.5 X10'3 (1.8-7.7); NEUTROPHILS % (AUTO) 91.4 % (42-75); PLATELET COUNT 274 X10'3 (140-440); RED BLOOD COUNT 3.66 X10'6 (4.20-5.60); RED CELL DISTRIBUTION WIDTH 13.7 % (11.5-14.5); WHITE BLOOD COUNT 20.2 X10'3 (4.5-11.0)
[2019-03-03 03:25] LABS: ALANINE AMINOTRANSFERASE 37 U/L (12-78); ALBUMIN/GLOBULIN RATIO 0.5 (1.1-1.5); ALKALINE PHOSPHATASE 122 IU/L (46-116); ANION GAP 9 (8-16); ASPARTATE AMINO TRANSFERASE 24 U/L (10-37); BILIRUBIN,TOTAL 0.4 MG/DL (0.1-1.0); BLOOD UREA NITROGEN 24 MG/DL (7-18); BUN/CREATININE RATIO 27.6 (6.6-38.0); CALCIUM 8.1 MG/DL (8.5-10.1); CHLORIDE 104 MMOL/L (99-107); CREATININE 0.87 MG/DL (0.40-0.90); GLUCOSE 137 MG/DL (70-104); SODIUM 144 MMOL/L (135-145); TOTAL CARBON DIOXIDE 31.2 MMOL/L (24-32); eGFR 63 ML/MIN
[2019-03-03 03:29] LABS: POTASSIUM 2.4 MMOL/L (3.5-5.1)
[2019-03-03] MEDS: potassium Cl 20 mEq SR tablet PO PRN (03:43)
[2019-03-03 03:55] LABS: MAGNESIUM 1.4 MG/DL (1.5-2.4)
--- NOTE | 2019-03-03 03:56 | NUR ---
PAGER ID: [phone] MESSAGE: pt 312 Amina Chaudhary has a critical K+ of 2.4. started on K+ replacement. -Lucy LEIVA ext [phone]
--- NOTE | 2019-03-03 05:30 | NUR ---
Mg of 1.4, will start replacement protocol
[2019-03-03 06:00] VITALS: BP 159/64
--- NOTE | 2019-03-03 06:11 | NUR ---
gave report to CALI Rothman
[2019-03-03] MEDS ORDERED: potassium Cl 20 mEq SR tablet PO PRN (06:35)
[2019-03-03] MEDS ORDERED: magnesium Cl slow-release 64mg tablet PO PRN (06:35)
[2019-03-03] MEDS ORDERED: magnesium 2GM in 50ml NS 50 ML IV PRN (06:35)
[2019-03-03] MEDS ORDERED: magnesium 4gm in 100ml NS 100 ML IV PRN (06:35)
[2019-03-03] MEDS ORDERED: potassium CL 10mEq/100ml bag 100 ML IV PRN (06:35)
[2019-03-03] MEDS: sucralfate 1gm/10ml UD suspension PO SCH (07:00)
[2019-03-03] MEDS: ipratropium/albuterol 3ml nebule NEB PRN (07:41)
[2019-03-03] MEDS: prednisone 10mg tablet PO SCH (07:51)
[2019-03-03] MEDS: gabapentin 300mg capsule PO SCH ×3 (07:51→21:35)
[2019-03-03] MEDS: amiodarone 200mg tablet PO SCH ×3 (07:51→21:35)
[2019-03-03] MEDS: lactobacillus rhamnosus 10,000 MMU CELLS/CAPSULE PO SCH ×2 (07:51→21:36)
[2019-03-03] MEDS: diltiazem CD 120mg capsule (once-daily) PO SCH (07:51)
[2019-03-03] MEDS: duloxetine 30mg CAPSULE.DR PO SCH (07:51)
[2019-03-03] MEDS: guaiFENesin ER 600mg tablet PO SCH ×2 (07:51→21:35)
[2019-03-03] MEDS: furosemide 20 MG/2 ML vial IV SCH ×2 (07:52→21:36)
[2019-03-03] MEDS: nystatin 500,000 unit/5ML UD oral suspension PO SCH (07:54)
[2019-03-03] MEDS: pantoprazole 40 MG vial IV SCH (08:00)
[2019-03-03] MEDS: levoTHYROXINE sod inj. 100mcg/5 ml vial IV SCH (08:00)
[2019-03-03] MEDS: heparin, porcine 5000 units/ml vial SQ SCH ×2 (08:00→21:36)
--- NOTE | 2019-03-03 09:10 | NUR ---
Paged Dr. Vieira Re: Amina Chaudhary in 312, may we change the IV Protonix and IV Synthroid to PO? Let me know, thank you, Lorna MALIK [phone]
[2019-03-03] MEDS: levoTHYROXINE 125mcg tablet PO SCH (10:13)
[2019-03-03 11:00] VITALS: BP 130/69
[2019-03-03 11:18] LABS: MAGNESIUM 2.2 MG/DL (1.5-2.4); POTASSIUM 3.6 MMOL/L (3.5-5.1)
[2019-03-03] MEDS: insulin Lispro (HumaLOG) vial - multi-dose SQ SCH ×2 (13:42→18:25)
[2019-03-03 14:00] VITALS: BP 148/49
--- NOTE | 2019-03-03 16:30 | NUR ---
WOUND CARE AND PICS TO COCCYX TREATED WOUND ON PT'S COCCYX THAT WAS PRESENT ON ADMISSION, BARRIER SPRAY, CALAZIME CREAM, AND NEW FOAM PLACED TO AREA. PICS TAKEN AND PLACED IN CHART
--- NOTE | 2019-03-03 18:21 | NUR ---
Patient in room MED 312. I have received report from Suzan LEIVA and had the opportunity to ask questions and assume patient care. bedside report completed. blood glucose covered.
[2019-03-03 18:45] VITALS: BP 154/60
[2019-03-03] MEDS: atorvastatin 10mg tablet PO SCH (21:35)
[2019-03-03] MEDS: latanoprost 0.005% 2.5ml ophthalmic drops EACHEYE SCH (21:36)
[2019-03-03 22:00] VITALS: BP 157/52
[2019-03-03] MEDS: insulin glargine (Lantus) pen - multi-dose SQ SCH (22:03)
[2019-03-03] MEDS: vancomycin/NS 1 GM ADD-VANTAGE 250 ML IV SCH (22:43)
[2019-03-04] MEDS: cefepime 1GM in D5W 50mL 50 ML IV SCH ×2 (00:52→08:40)
[2019-03-04 02:00] VITALS: BP 142/57
[2019-03-04 02:40] LABS: BASOPHILS # (AUTO) 0.1 X10'3 (0-0.2); BASOPHILS % (AUTO) 0.4 % (0-1); EOSINOPHILS % (AUTO) 0 % (0-6); HEMOGLOBIN 12.1 g/dl (12.0-16.0); LYMPHOCYTES # (AUTO) 0.4 X10'3 (1.1-4.8); LYMPHOCYTES % (AUTO) 1.9 % (21-51); MEAN CORPUSCULAR HEMOGLOBIN 31.9 PG (27.0-31.0); MEAN CORPUSCULAR HGB CONC 33.7 g/dL (33.0-36.5); MEAN CORPUSCULAR VOLUME 94.8 FL (78-98); MEAN PLATELET VOLUME 8.9 FL (7.4-10.4); MONOCYTES # (AUTO) 0.9 X10'3 (0-0.9); MONOCYTES % (AUTO) 4.4 % (2-12); NEUTROPHILS # (AUTO) 19.8 X10'3 (1.8-7.7); NEUTROPHILS % (AUTO) 93.3 % (42-75); PLATELET COUNT 256 X10'3 (140-440); WHITE BLOOD COUNT 21.2 X10'3 (4.5-11.0)
[2019-03-04] MEDS: ipratropium/albuterol 3ml nebule NEB PRN ×2 (02:58→07:56)
[2019-03-04 03:05] LABS: ALANINE AMINOTRANSFERASE 35 U/L (12-78); ALBUMIN 2.1 G/DL (3.4-5.0); ALBUMIN/GLOBULIN RATIO 0.5 (1.1-1.5); ALKALINE PHOSPHATASE 123 IU/L (46-116); ANION GAP 9 (8-16); ASPARTATE AMINO TRANSFERASE 22 U/L (10-37); BILIRUBIN,TOTAL 0.4 MG/DL (0.1-1.0); BLOOD UREA NITROGEN 30 MG/DL (7-18); BUN/CREATININE RATIO 31.3 (6.6-38.0); CALCIUM 8.4 MG/DL (8.5-10.1); CHLORIDE 106 MMOL/L (99-107); CREATININE 0.96 MG/DL (0.40-0.90); GLUCOSE 128 MG/DL (70-104); POTASSIUM 3.2 MMOL/L (3.5-5.1); SODIUM 146 MMOL/L (135-145); TOTAL CARBON DIOXIDE 30.8 MMOL/L (24-32); TOTAL PROTEIN 6.2 G/DL (6.4-8.2); eGFR 57 ML/MIN
[2019-03-04 04:50] LABS: MAGNESIUM 1.8 MG/DL (1.5-2.4)
[2019-03-04] MEDS: potassium Cl 20 mEq SR tablet PO PRN ×2 (04:56→08:44)
[2019-03-04 06:00] VITALS: BP 167/60
[2019-03-04] MEDS: levoTHYROXINE 125mcg tablet PO SCH (06:02)
--- NOTE | 2019-03-04 06:20 | NUR ---
Patient in room MED 312. I have received report from CALI DEGROOT and had the opportunity to ask questions and assume patient care.
[2019-03-04] MEDS ORDERED: pantoprazole 40mg Tablet.DR PO SCH (07:30)
[2019-03-04] MEDS: gabapentin 300mg capsule PO SCH (08:43)
[2019-03-04] MEDS: furosemide 20 MG/2 ML vial IV SCH (08:43)
[2019-03-04] MEDS: lactobacillus rhamnosus 10,000 MMU CELLS/CAPSULE PO SCH (08:43)
[2019-03-04] MEDS: duloxetine 30mg CAPSULE.DR PO SCH (08:43)
[2019-03-04] MEDS: amiodarone 200mg tablet PO SCH (08:43)
[2019-03-04] MEDS: prednisone 10mg tablet PO SCH (08:43)
[2019-03-04] MEDS: guaiFENesin ER 600mg tablet PO SCH (08:43)
[2019-03-04] MEDS: heparin, porcine 5000 units/ml vial SQ SCH (08:44)
[2019-03-04] MEDS: diltiazem CD 120mg capsule (once-daily) PO SCH (08:44)
[2019-03-04] MEDS: morphine 2 MG/ML inj. syringe IV PRN (09:47)
--- NOTE | 2019-03-04 09:55 | NUR ---
PAGER ID: [phone] MESSAGE: 312- Amina Chaudhary- patient is requesting to be made comfort care. Lungs- gurgling. Patient wants to . Morphine given. Family at bedside. Please call Nakia Charge Nurse- Ext [phone] ([phone] character message out of a maximum of [phone])
--- NOTE | 2019-03-04 10:36 | NUR ---
Patient is expressing her wish to "". She began saying this to myself and Quynh, our clinical unit coordinator. Her son is now requesting to have a meeting with Dr. Vieira regarding his mother's current state and how they would like to transition her care. I have sent a message to Dr. Vieira regarding this matter and am waiting for a call back from him.
--- NOTE | 2019-03-04 10:36 | NUR ---
PAGER ID: [phone] MESSAGE: Dr. Vieira, pt Patric Chaudhary in rm 312 on [facility]. Family requesting a meeting with you. Please call [facility] unit. Thank you, Ju Sanabria RN [phone]
[2019-03-04] MEDS ORDERED: acetaminophen 325mg tablet PO PRN (11:30)
--- NOTE | 2019-03-04 14:16 | NUR ---
patient is now DNR with comfort care. now has regular diet. will follow per protocol. Recommend: 1. continue regular diet Addendum: 03/04/19 at [address] Amended: Links added.
[2019-03-04] MEDS: morphine 10mg/0.5ml (conc. morphine) oral syringe PO PRN ×2 (15:25→23:33)
[2019-03-04] MEDS: LORazepam 2 mg/ml vial IV PRN ×2 (16:41→23:33)
--- NOTE | 2019-03-04 18:15 | NUR ---
Problems reprioritized. Patient report given, questions answered & plan of care reviewed with CALI Kitchen.
--- NOTE | 2019-03-04 18:28 | NUR ---
Transferred patient and family to room 307 on [facility] to provide room for family and quieter atmosphere.
--- NOTE | 2019-03-04 18:30 | NUR ---
Patient in room MED 307. I have received report from Elly LEIVA and had the opportunity to ask questions and assume patient care. Bedside report completed. family at bedside. comfort cart stocked. no distress noted. pt appears comfortable.
[2019-03-04] MEDS ORDERED: VANCOMYCIN LEVEL IV ONE (21:30)
[2019-03-04 23:46] VITALS: BP 193/73
[2019-03-05] MEDS ORDERED: scopolamine 1.5mg patch.TD72 TD SCH (01:25)
--- NOTE | 2019-03-05 01:25 | NUR ---
Dr. Arellano notified r/t pt appears air hungry, increased moist secretion noted. new orders. 1. morphine 2 mg IVP 2. scopolamine patch.
[2019-03-05] MEDS: morphine 2 MG/ML inj. syringe IV PRN ×5 (01:50→23:37)
[2019-03-05] MEDS: morphine 10mg/0.5ml (conc. morphine) oral syringe PO PRN ×3 (04:05→22:29)
[2019-03-05] MEDS: LORazepam 2 mg/ml vial IV PRN ×2 (04:21→20:44)
--- NOTE | 2019-03-05 06:00 | NUR ---
I have received report from Branden LEIVA and had the opportunity to ask questions and assume patient care.
--- NOTE | 2019-03-05 06:18 | NUR ---
Problems reprioritized. Patient report given, questions answered & plan of care reviewed with Abilio LEIVA. Bedside report complete
[2019-03-05 15:00] VITALS: BP 127/62
--- NOTE | 2019-03-05 17:59 | NUR ---
Problems reprioritized. Patient report given, questions answered & plan of care reviewed with CALI Stallworth.
--- NOTE | 2019-03-05 18:17 | NUR ---
Orienteer documentation: I have reviewed and agree with all interventions, assessments performed and documented by Zuleima LEIVA.
--- NOTE | 2019-03-05 18:20 | NUR ---
Patient in room MED 307. I have received report from CALI Dewey and had the opportunity to ask questions and assume patient care. Patient is resting comfortably with family at bedside, I will continue to monitor.
--- NOTE | 2019-03-06 02:23 | NUR ---
Time of [id number]
--- NOTE | 2019-03-06 02:41 | NUR ---
Donor network and Dr. Arellano notified of .
== END 2019-03-06 02:18 | disposition expired | DRG 291 ==
LOC: ER 09:48 → ED HOLD 13:20 → EDBEDREQ 13:22 → MED 3N 13:35
PROVIDERS: ADMIT Family Medicine; ATTEND Internal Medicine
PROC: B32T1ZZ Computerized Tomography (CT Scan) of Left Pulmonary Artery using Low Osmolar Contrast (ICD-10-PCS; 2019-02-14)
PROC: B3201ZZ Computerized Tomography (CT Scan) of Thoracic Aorta using Low Osmolar Contrast (ICD-10-PCS; 2019-02-14)
PROC: B32S1ZZ Computerized Tomography (CT Scan) of Right Pulmonary Artery using Low Osmolar Contrast (ICD-10-PCS; 2019-02-14)
PROC: 0W9B3ZZ Drainage of Left Pleural Cavity, Percutaneous Approach (ICD-10-PCS; principal; 2019-02-15)
DX: I11.0 Hypertensive heart disease with heart failure (principal); J96.01 Acute respiratory failure with hypoxia; G93.41 Metabolic encephalopathy; J18.9 Pneumonia, unspecified organism; J91.8 Pleural effusion in other conditions classified elsewhere; C34.90 Malignant neoplasm of unspecified part of unspecified bronchus or lung; C7A.8 Other malignant neuroendocrine tumors; I50.33 Acute on chronic diastolic (congestive) heart failure; E11.9 Type 2 diabetes mellitus without complications; M54.9 Dorsalgia, unspecified; E78.5 Hyperlipidemia, unspecified; I65.21 Occlusion and stenosis of right carotid artery; R00.0 Tachycardia, unspecified; F32.9 Major depressive disorder, single episode, unspecified; E03.9 Hypothyroidism, unspecified; R62.7 Adult failure to thrive; Z51.5 Encounter for palliative care; G89.4 Chronic pain syndrome; Z83.3 Family history of diabetes mellitus; Z85.038 Personal history of other malignant neoplasm of large intestine; Z92.21 Personal history of antineoplastic chemotherapy; Z98.1 Arthrodesis status; Z88.5 Allergy status to narcotic agent; Z79.899 Other long term (current) drug therapy; Z79.4 Long term (current) use of insulin; Z68.28 Body mass index [BMI] 28.0-28.9, adult; Z91.19 Patient's noncompliance with other medical treatment and regimen; I48.0 Paroxysmal atrial fibrillation; E87.5 Hyperkalemia; Z66 Do not resuscitate; E87.6 Hypokalemia
CPT/HCPCS: 32555; 36415; 36600; 70450; 70544; 70551; 71045; 71260; 76937; 80048; 80053; 80162; 80202; 81001; 82803; 82948; 83036; 83605; 83735; 83880; 84132; 84145; 84443; 84484; 85018; 85025; 87040; 87070; 87081; 92508; 92616; 93005; 94640; 94667; 94668; 94760; 97110; 97112; 97116; 97162; 97530; 97535; 99285; C9113; G0378; J0282; J0360; J0610; J0692; J1160; J1644; J1815; J1940; J2001; J2060; J2270; J2405; J3370; J3475; J3480; J3490; J7030; J7040; J7512